=== PATIENT | male | born 1955 | race Caucasian/White ===

== ENCOUNTER → 2023-10-25 08:09 | Outpatient (REF) | payer BC, SELFPAY | LOC: HWRAD 08:09 | PROVIDERS: ATTENDING PHYSICIAN Internal Medicine | DX: R10.11 Right upper quadrant pain (principal) | CPT/HCPCS: 74170; Q9967 ==

== ENCOUNTER → 2023-11-25 12:36 | Outpatient (REF) | payer BC, SELFPAY | LOC: RAD 12:36 | PROVIDERS: ATTENDING PHYSICIAN Internal Medicine Hematology & Oncology; FAMILY PHYSICIAN Internal Medicine | DX: C25.0 Malignant neoplasm of head of pancreas (principal) | CPT/HCPCS: 71260; 72193; Q9967 ==

== ENCOUNTER → 2023-11-29 08:49 | Outpatient (REF) | payer BC, SELFPAY ==
[2023-11-29] MEDS: ANCEF 10 IV (09:12)
[2023-11-29 09:18] VITALS: BP 119/79; BP_SYST 72
[2023-11-29 10:36] VITALS: BP 118/75
== END ==
LOC: RADI 08:49
PROVIDERS: ATTENDING PHYSICIAN Internal Medicine Hematology & Oncology; FAMILY PHYSICIAN Internal Medicine
DX: C25.0 Malignant neoplasm of head of pancreas (principal)
CPT/HCPCS: 36561; 76937; 77001; 99152; 99153; C1788

== ENCOUNTER 2023-12-05 07:00 | Outpatient (REF) | payer BC, SELFPAY ==
[2023-12-05 07:30] VITALS: BP 103/64; BP_SYST 72
[2023-12-05 07:51] LABS: Hemoglobin 10.7 g/dL (13.0-18.0); Mean Corp Hgb Conc. 34.5 g/dL (33.0-37.0); Mean Corpuscular Volume 81.2 fL (80.0-94.0); Mean Platelet Volume 8.8 fL (7.4-10.4); Platelet Count 317 10^3/uL (130-400); Red Blood Cell Count 3.82 10^6/uL (4.70-6.10); White Blood Cell Count 6.4 10^3/uL (4.8-10.8)
[2023-12-05 08:01] LABS: INR 1.14; PT 14.6 Sec (11.4-14.6)
[2023-12-05 10:15] VITALS: BP 124/75
[2023-12-05 10:45] VITALS: BP 128/76
[2023-12-05] MEDS: TYLENOL 1000 MG PO (11:20)
[2023-12-05 11:27] VITALS: BP 138/83
[2023-12-05 13:00] VITALS: BP 119/74
--- NOTE | 2023-12-05 13:35 | VATNOTE ---
Right SQ port flushed with 500 units of heparin and de-accessed.
[2023-12-05 14:00] VITALS: BP 113/69
== END 2023-12-05 14:00 | disposition home or self-care (01) ==
LOC: RADI 07:00
PROVIDERS: Radiology Diagnostic Radiology; ATTENDING PHYSICIAN Internal Medicine Hematology & Oncology; FAMILY PHYSICIAN Internal Medicine
DX: C22.7 Other specified carcinomas of liver (principal); K86.89 Other specified diseases of pancreas
CPT/HCPCS: 88307; 47000; 76942; 85027; 85610; 88333; 88334; 88341; 88342; 99152; 99153

== ENCOUNTER → 2023-12-24 09:58 | Outpatient (REF) | payer BC, SELFPAY ==
[2023-12-24 11:27] LABS: ALT (SGPT) 47 U/L (0-50); AST (SGOT) 32 U/L (17-59); Albumin 3.6 g/dl (3.5-5.0); Alkaline Phosphatase 278 U/L (38-126); Blood Urea Nitrogen 13 mg/dl (9-20); Calcium 8.9 mg/dl (8.4-10.2); Carbon Dioxide 27 mmol/L (22-30); Chloride 89 mmol/L (98-107); Glucose 257 mg/dl (70-99); Potassium 4.3 mmol/L (3.5-5.1); Sodium 132 mmol/L (135-145); Total Bilirubin 0.5 mg/dl (0.2-1.3); Total Protein 6.5 g/dl (6.3-8.2); eGFR > 60.00
== END ==
LOC: OIDL 09:58
PROVIDERS: ATTENDING PHYSICIAN Internal Medicine Hematology & Oncology
DX: C25.0 Malignant neoplasm of head of pancreas (principal)
CPT/HCPCS: 80053

== ENCOUNTER → 2024-01-15 13:52 | Outpatient (REF) | payer BC, SELFPAY | LOC: HWRCS 13:52 | PROVIDERS: ATTENDING PHYSICIAN Nurse Practitioner; FAMILY PHYSICIAN Internal Medicine | DX: I35.8 Other nonrheumatic aortic valve disorders (principal) | CPT/HCPCS: 93306 ==

== ENCOUNTER → 2024-03-05 16:37 | Outpatient (REF) | payer BC, SELFPAY | LOC: RAD 16:37 | PROVIDERS: ATTENDING PHYSICIAN Internal Medicine Hematology & Oncology; FAMILY PHYSICIAN Internal Medicine | DX: C25.0 Malignant neoplasm of head of pancreas (principal) | CPT/HCPCS: 71260; 74177; Q9967 ==

== ENCOUNTER → 2024-05-05 07:47 | Outpatient (REF) | payer BC, SELFPAY | LOC: HWRAD 07:47 | PROVIDERS: ATTENDING PHYSICIAN Internal Medicine Hematology & Oncology; FAMILY PHYSICIAN Internal Medicine | DX: C25.0 Malignant neoplasm of head of pancreas (principal) | CPT/HCPCS: 76700 ==

== ENCOUNTER → 2024-05-14 11:10 | Outpatient (REF) | payer BC, SELFPAY ==
[2024-05-14 12:14] LABS: Hematocrit 26.7 % (39.0-52.0); Hemoglobin 8.2 g/dL (13.0-18.0); Mean Corp Hgb Conc. 30.7 g/dL (33.0-37.0); Mean Corpuscular Hgb 29.7 pg (27.0-31.0); Mean Corpuscular Volume 96.7 fL (80.0-94.0); Mean Platelet Volume 10.9 fL (7.4-10.4); Platelet Count 227 10^3/uL (130-400); Red Blood Cell Count 2.76 10^6/uL (4.70-6.10); Red Cell Dist. Width 19.8 % (11.5-14.5); White Blood Cell Count 14.3 10^3/uL (4.8-10.8)
[2024-05-14 12:55] LABS: % Basophils 0.7 % (0-2); % Eosinophils 0.3 % (0-6); % Immature Granulocytes 2.8 % (0-0.5); % Lymphocytes 6.7 % (20.5-51.1); % Monocytes 10.7 % (1.7-9.3); % Neutrophils 78.8 % (42.2-75.2); Absolute Basophils 0.1 10^3/uL (0-0.2); Absolute Eosinophils 0.1 10^3/uL (0-0.7); Absolute Immature Granulocytes 0.4 10^3/uL (0-0.05); Absolute Monocytes 1.5 10^3/uL (0.1-0.6); Absolute Neutrophils 11.3 10^3/uL (1.4-6.5); Nucleated Red Blood Cells % 0.3 % (-)
[2024-05-14 13:24] LABS: ALT (SGPT) 95 U/L (0-50); AST (SGOT) 116 U/L (17-59); Albumin 2.7 g/dl (3.5-5.0); Blood Urea Nitrogen 21 mg/dl (9-20); Calcium 8.4 mg/dl (8.4-10.2); Carbon Dioxide 27 mmol/L (22-30); Chloride 107 mmol/L (98-107); Direct Bilirubin 1.9 mg/dl (0.0-0.4); Glucose 135 mg/dl (70-99); Potassium 4.8 mmol/L (3.5-5.1); Sodium 139 mmol/L (135-145); Total Bilirubin 2.6 mg/dl (0.2-1.3); Total Protein 5.4 g/dl (6.3-8.2); eGFR > 60.00
[2024-05-14 13:38] LABS: Alkaline Phosphatase 1440 U/L (38-126)
== END ==
LOC: OIDL 11:10
PROVIDERS: ATTENDING PHYSICIAN Nurse Practitioner Adult Health
DX: C25.0 Malignant neoplasm of head of pancreas (principal)
CPT/HCPCS: 36415; 80048; 80076; 85025

== ENCOUNTER → 2024-05-22 16:02 | Outpatient (REF) | payer BC, SELFPAY ==
[2024-05-22 15:19] LABS: Iron 58 ug/dl (49-181)
[2024-05-22 15:28] LABS: Percent Saturation 31 % (20-50); Total Iron Binding Capacity 185 ug/dl (261-462)
== END ==
LOC: OIDL 16:02
PROVIDERS: ATTENDING PHYSICIAN Nurse Practitioner Adult Health
DX: C25.0 Malignant neoplasm of head of pancreas (principal)
CPT/HCPCS: 82728; 83540; 83550

== ENCOUNTER 2024-06-01 08:59 | Outpatient (RCR) | payer BC, SELFPAY ==
[2024-05-28 08:59] VITALS: BP 107/56
[2024-05-28 09:16] VITALS: BP 94/52
[2024-05-28 11:11] VITALS: BP 102/55
[2024-05-29 13:46] LABS: % Basophils 0.1 % (0-2); % Immature Granulocytes 0.8 % (0-0.5); % Lymphocytes 3.7 % (20.5-51.1); % Monocytes 3.6 % (1.7-9.3); % Neutrophils 91.8 % (42.2-75.2); Absolute Immature Granulocytes 0.2 10^3/uL (0-0.05); Absolute Lymphocytes 0.8 10^3/uL (1.2-3.4); Absolute Monocytes 0.8 10^3/uL (0.1-0.6); Absolute Neutrophils 19.1 10^3/uL (1.4-6.5); Hematocrit 23.1 % (39.0-52.0); Hemoglobin 7.4 g/dL (13.0-18.0); Mean Corpuscular Hgb 31.4 pg (27.0-31.0); Mean Corpuscular Volume 97.9 fL (80.0-94.0); Mean Platelet Volume 10.9 fL (7.4-10.4); Platelet Count 39 10^3/uL (130-400); Red Blood Cell Count 2.36 10^6/uL (4.70-6.10); Red Cell Dist. Width 22.7 % (11.5-14.5); White Blood Cell Count 20.8 10^3/uL (4.8-10.8)
[2024-06-01 09:47] VITALS: BP 104/58
[2024-06-01 10:05] VITALS: BP 91/56
[2024-06-01 11:59] VITALS: BP 103/67
== END 2024-06-15 23:59 | disposition home or self-care (01) ==
LOC: OID 08:59
PROVIDERS: Nurse Practitioner Adult Health; ATTENDING PHYSICIAN Internal Medicine Hematology & Oncology; FAMILY PHYSICIAN Internal Medicine
DX: C25.0 Malignant neoplasm of head of pancreas (principal); D64.81 Anemia due to antineoplastic chemotherapy
CPT/HCPCS: 36415; 36430; 85025; 86850; 86900; 86901; 86920; P9016

== ENCOUNTER → 2024-06-08 06:49 | Outpatient (REF) | payer BC, SELFPAY | LOC: RAD 06:49 | PROVIDERS: ATTENDING PHYSICIAN Internal Medicine Hematology & Oncology; FAMILY PHYSICIAN Internal Medicine | DX: C25.0 Malignant neoplasm of head of pancreas (principal) | CPT/HCPCS: 71260; 74177; Q9967 ==

== ENCOUNTER 2024-07-01 07:55 | Inpatient (IN) | payer BC, MEDICARE, SELFPAY ==
[2024-07-01] VITALS (114 sets, daily range): BP systolic 56–126; BP diastolic 35–103; PULSE 106; BMI 31.6; BMI 31.3
[2024-07-01] MEDS: NSS 1000 IV (04:39)
--- NOTE | 2024-07-01 05:07 | ED.GENMED ---
History of Present Illness
General
Chief Complaint: Weakness
Source: patient and ambulance crew
Exam Limitations: none
Time Seen by Provider: 07/01/24 04:38
Nursing documentation reviewed up to this point in time: agreed with
History of Present Illness
History of Present Illness:
69-year-old male presents to the emergency department with weakness. Patient originally needed help getting out of a chair so family called 911. Patient did not fall or hit his head. Medics arrived on scene and found that the patient was
extremely pale and too weak to stand on his own. They brought him to the hospital for evaluation. states that this is his first hospitalization anywhere. He does follow with oncology but only as an outpatient. Patient has a history of
pancreatic cancer and is on chemotherapy. He states that he was first diagnosed in December 09 and has been on chemotherapy since. Patient reports having gained weight recently. He states that his abdomen is very distended and his legs are also
distended. Patient does get chemo and is being treated by Dr. De Los Santos of [facility]. Patient denies fever, chills, chest pain, or shortness of breath. Aside from the weakness, patient denies any other symptoms.
Patient is full code.
Vital signs are stable. Patient not hypoxic
Nursing note reviewed. I agree with nursing documentation up to this point in time.
Home Meds and allergies reviewed.
NUMBER AND COMPLEXITY OF PROBLEMS ADDRESSED AT THE ENCOUNTER
� Chronic conditions affecting care: Pancreatic mass at the head of the pancreas. Metastatic disease to the liver. Type 2 diabetes, hyperlipidemia, colonic polyps, hypertension, obstructive sleep apnea on CPAP, obesity,
� Acute Exacerbation and/or Progression of Chronic Illness: Pancreatic cancer with mets to the liver. Possible further metastasis
� Differential Diagnosis includes: Further metastatic disease, anemia, GI bleed electrolyte abnormality, hypothermia
AMOUNT AND/OR COMPLEXITY OF DATA TO BE REVIEWED AND ANALYZED
I performed an independent evaluation of the following and my interpretation is:
EKG:
Pulse Ox: Not Hypoxic on room air. 98%
Sander Wooden Pencils: Sinus Rhythm
CT:
X-rays:
Ultrasound:
Laboratory Studies: Hemoglobin 5.2, hematocrit 16.6
Other:
Review of other/old records: H&P from 11/29/2023 shortly after his cancer diagnosis. Biopsy
Clinical information was obtained by an independent historian: was present at the bedside is a valuable historian.
Prescriptions/Medications Considered but not given:
Further testing considered but not performed:
RISK OF COMPLICATIONS AND/OR MORBIDITY OR MORTALITY OF PATIENT MANAGEMENT
Social determinants of health affecting care: Good Social Support, present at the bedside
Discussion with other providers: Hospital for ICU admission
Escalation of care including admission/observation vs risk of discharge considered: After being observed in the emergency department, patient is not stable for discharge. He will be admitted to the ICU
CRITICAL CARE NOTE:
Critical care statement: A total of 45 minutes of critical care time was provided for this patient. This time is separate from time utilized to perform the aforementioned documented procedures. Aggregate critical care time includes only time
during which I was engaged in work directly related to the patient's care, as described above, whether at the bedside or elsewhere in the Emergency Department.
Total Time (exclusive of procedures):45
Update:
Phy Exam
General Physical Exam
General Presentation: mild distress
General age: appears older than age
General Skin: warm, dry and pale
General Habitus: debilitated, elderly, failure to thrive and frail
General Mental: alert
Eye Exam
Eye Exam: PERRL
Cardiovascular Exam
Cardiovascular Exam: regular rate/rhythm
Pulmonary Exam
Pulmonary Exam: lungs clear and no respiratory distress
Gastrointestinal Exam
Gastrointestinal Exam: normal bowel sounds, non tender and ascites
Palpation: generalized: No tenderness
Auscultation of Abdomen: normal
Liver Exam: ascites
Guaiac Status: positive
Neurological Exam
Neurological Exam: alert and oriented x3
Musculoskeletal Exam
Musculoskeletal Exam: full ROM, edema (Large edema bilaterally lower extremities consistent with 4+ pitting edema) and neuro vasc intact
Skin Exam
Skin Exam: warm/dry and pallor
Psychiatric Exam
Psychiatric Exam: labile
Course
Orders/Labs/Results
Orders:
Orders
07/01/24 04:54
Type And Crossmatch [Type+Screen] Urgent
Complete Blood Count/With Diff Urgent
Comprehensive Metabolic Panel Urgent
Lipase Urgent
PTT Urgent
Prothrombin Time Urgent
07/01/24 05:06
0.9% Sodium Chloride 1000 ml [Nss] 1,000 ml IV BOLUS
07/01/24 05:25
* Blood Bank Products Urgent
Blood Bank Products: *Packed RBC Leuko(PRBC's)
Quantity: 2
Transfuse Today: Yes
Reason: Anemia
07/01/24 05:[address] Non Medication Order As Directed
Physician Order: giovanny cox
07/01/24 05:31
Electrocardiogram (*1) Urgent
Reason for Study: Abdominal Pain
EKG- Treatment ONCE
07/01/24 05:52
Pantoprazole [Protonix IV] 80 mg IV NOW STA
07/01/24 05:53
Piperacillin/Tazo 4.5 Gram [Zosyn] 4.5 gram in 100 ml IV NOW
07/01/24 06:00
NORepinephrine 4 MG/250 ML [Levophed] 4 mg in 250 ml IV PER PROTOCOL
Initial dose in mcg/min, then titrate:: 8
Titrate to keep:: MAP > 65 mmHg
Titrate by mcg/min:: 1-2 mcg/min
Frequency of titrations (minutes):: 5
Maximum dose in ICU in mcg/min:: 30
Maximum dose in IMU in mcg/min:: 8
Maximum dose in IVU in mcg/min:: 4
Begin to taper infusion when:: Remained at goal for 4hrs
Taper by mcg/min:: 1-2 mcg/min
Frequency of taper (minutes) if patient maintains goal:: 30
Taper to off?: Yes
If infusion off & no longer maintaining goal:: Contact Provider
Pantoprazole 80 mg/100 ml Nss [Protonix] 80 mg in 100 ml IV Q10H
Abnormal Lab Results
07/01/24
04:54
WBC 20.8 H 10^3/uL
(4.8-10.8)
RBC 1.55 L 10^6/uL
(4.70-6.10)
Hgb 5.2 L* g/dL
(13.0-18.0)
Hct 16.6 L* %
(39.0-52.0)
MCV 107.1 H fL
(80.0-94.0)
MCH 33.5 H pg
(27.0-31.0)
MCHC 31.3 L g/dL
(33.0-37.0)
RDW 26.5 H %
(11.5-14.5)
Plt Count 40 L 10^3/uL
(130-400)
MPV 12.5 H fL
(7.4-10.4)
PT 23.0 H Sec
(11.4-14.6)
APTT 52.2 H Sec
(23.4-35.0)
Sodium 147 H mmol/L
(135-145)
Chloride 118 H mmol/L
(98-107)
Carbon Dioxide 12 L* mmol/L
(22-30)
BUN 76 H mg/dl
(9-20)
Creatinine 1.7 H mg/dL
(0.7-1.3)
Glucose 106 H mg/dl
(70-99)
Calcium 7.8 L mg/dl
(8.4-10.2)
Total Bilirubin 2.7 H mg/dl
(0.2-1.3)
AST 76 H U/L
(17-59)
Alkaline Phosphatase 472 H U/L
(38-126)
Total Protein 4.5 L g/dl
(6.3-8.2)
Albumin 1.6 L g/dl
(3.5-5.0)
07/01/24 04:54
07/01/24 04:54
Vital Signs
Initial and Last Documented VS:
Initial Vital Signs
BP
81/48
07/01/24 04:43
Last Documented Vital Signs
Temp Pulse Resp BP Pulse Ox
93.2 F L 72 16 78/46 98
07/01/24 05:25 07/01/24 05:00 07/01/24 05:00 07/01/24 05:00 07/01/24 05:14
MDM/Problems Addressed
Differential Diagnosis Includes:
See above
MDM/Problems Addressed:
See above
*Critical Care Note
Total Time (30-74mins, 75-104mins- exclusive of procedures): 45
Patient Management
Social determinants of health affecting care: Living situation (Patient lives at home and was too weak to get up. Required a lift assist to help lift him back into bed which necessitated a trip to the ER due to patient's weakness.) and Strong
social support
Discussion with other providers: Hospitalist
Update Note
Update Note:
Patient's hemoglobin is 5.2, hematocrit is 16.6.
Blood consent signed in the presence of myself and nursing by with patient's consent.
states that patient has gotten blood in the past.
After 1 L of fluid patient is still hypotensive. Levophed drip started.
Patient has a 20.8 white blood cell count. Will start empiric antibiotics.
Heme positive stools, hemoglobin 5.2, will start Protonix for presumed GI bleed
ED Attending Note
-
Portions of this chart may have been created with voice recognition software.� Occasional wrong word or��sound alike� substitutions may have occurred due to the inherent limitations of voice recognition software.
Discharge Plan
Departure
Patient Disposition: Admit
Date of Disposition: 07/01/24
Time of Disposition: 05:28
Admit to: ICU
Presentation/result/management discussed w/ accepting MD/DO: Hospitalist
Discharge Problem:
Anemia, Pancreatic cancer, Advance directive indicates patient wish for full code resuscitation status, Weakness generalized, Hypothermia, Hypocapnia
Prescriptions:
No Action
atorvastatin 40 mg Tablet
40 mg PO DAILY
amlodipine 10 mg Tablet
10 mg PO DAILY
metformin 1,000 mg Tablet
1,000 mg PO BID
lisinopril 40 mg Tablet
40 mg PO DAILY
docusate sodium 100 mg Tablet
100 mg PO DAILY PRN (Reason: constipation)
B12 5,000-100 mcg Lozenge
1 justine SUBLINGUAL DAILY
acetaminophen 325 mg Capsule
650 mg PO BID
furosemide [Lasix] 20 mg Tablet
20 mg PO BID
Referrals:
UNKNOWN - PT DOES,NOT KNOW [Family Provider] -
Interventions
Interventions:
*Risk Screen - Suicide Last Done: 07/01/24 04:39
*General Assessment Last Done: 07/01/24 04:39
*Neglect/Abuse Screening Last Done: 07/01/24 04:39
*ED- Fall Risk Assessment Last Done: 07/01/24 04:39
*ED COVID-19 Vaccine History Last Done: 07/01/24 04:39
ED- Cardiac Assessment Last Done: 07/01/24 04:40
ED- Neurological Assessment Last Done: 07/01/24 04:40
ED- Pulmonary Assessment Last Done: 07/01/24 04:40
Discharge Date and Time
Print Language: DANISH
[2024-07-01 05:16] LABS: INR 2.02
[2024-07-01 05:17] LABS: APTT 52.2 Sec (23.4-35.0)
[2024-07-01 05:19] LABS: Hematocrit 16.6 % (39.0-52.0); Hemoglobin 5.2 g/dL (13.0-18.0); Mean Corp Hgb Conc. 31.3 g/dL (33.0-37.0); Mean Corpuscular Hgb 33.5 pg (27.0-31.0); Mean Corpuscular Volume 107.1 fL (80.0-94.0); Mean Platelet Volume 12.5 fL (7.4-10.4); Platelet Count 40 10^3/uL (130-400); Red Blood Cell Count 1.55 10^6/uL (4.70-6.10); Red Cell Dist. Width 26.5 % (11.5-14.5); White Blood Cell Count 20.8 10^3/uL (4.8-10.8)
[2024-07-01 05:21] LABS: ALT (SGPT) 43 U/L (0-50); AST (SGOT) 76 U/L (17-59); Albumin 1.6 g/dl (3.5-5.0); Alkaline Phosphatase 472 U/L (38-126); Blood Urea Nitrogen 76 mg/dl (9-20); Calcium 7.8 mg/dl (8.4-10.2); Carbon Dioxide 12 mmol/L (22-30); Chloride 118 mmol/L (98-107); Estimated Creatinine Clearance 45 ml/min; Glucose 106 mg/dl (70-99); Lipase 29 U/L (23-300); Sodium 147 mmol/L (135-145); Total Bilirubin 2.7 mg/dl (0.2-1.3); Total Protein 4.5 g/dl (6.3-8.2); eGFR 43.64
[2024-07-01 05:55] LABS: % Basophils 0.2 % (0-2); % Immature Granulocytes 1.2 % (0-0.5); % Lymphocytes 1.3 % (20.5-51.1); % Monocytes 2.5 % (1.7-9.3); % Neutrophils 94.8 % (42.2-75.2); Absolute Basophils 0.1 10^3/uL (0-0.2); Absolute Immature Granulocytes 0.3 10^3/uL (0-0.05); Absolute Lymphocytes 0.3 10^3/uL (1.2-3.4); Absolute Monocytes 0.5 10^3/uL (0.1-0.6); Absolute Neutrophils 19.7 10^3/uL (1.4-6.5); Nucleated Red Blood Cells % 0.1 % (-)
[2024-07-01] MEDS: PROTONIX IV 80 MG IV (06:00)
[2024-07-01] MEDS: LEVOPHED 250 IV ×2 (06:01→17:54)
[2024-07-01] MEDS: PROTONIX IV ×2 (06:06→18:29)
[2024-07-01] MEDS: ZOSYN 100 IV (06:07)
[2024-07-01] MEDS: PROTONIX 100 IV ×2 (06:10→23:00)
--- NOTE | 2024-07-01 06:42 | HPS.HSE ---
Family Physician
-
Family Physician: NOT KNOW UNKNOWN - PT DOES
Chief Complaint
-
Weakness
History of Present Illness
This is a 69-year-old with past medical history significant for metastatic pancreatic cancer currently on chemotherapy with progressive disease and extensive liver mets complicated by ascites and anasarca presenting to the emergency department from
home with profound weakness and hypotension.
Patient last round of chemo about 1 week ago. He appeared to have needed transfusions on May 28 and June 01. He had apparently been managing at home waiting for a hospital bed. A sleepover for his chair today and he was able to get himself off
the ground. Son helped him to get back into his seat but then he slipped again. He initially did not want to come to the emergency department but spouse found him ashen and pale. He was very weak and eventually agreed to come to the emergency
department. EMS report hypotension given about half a liter of normal saline and then transferred to the ED.
According to spouse and patient he had a mild cough and some shortness of breath. He denied any abdominal pain nausea or vomiting. Denied having diarrhea. He denies any urinary symptoms. He has not had any melena or hematochezia at home.
Denies any recent antibiotic use.
On arrival in the emergency department he was hypothermic to 93 rectal, blood pressure was 60/40 with a pulse of 72 and he was satting 95% on room air.
CBC shows a white count of 20.8, hemoglobin of 5.2 and a platelet count of 40. INR was 2.0. Electrolytes notable for a potassium of 5.0, bicarb of 12, BUN of 76 and a creatinine of 1.7. Total bilirubin was 2.7, AST 76 ALT 43. Alk phos 407
Medical History
Past Medical History
Past Medical History: Reports Cancer (Metastatic pancreatic cancer), HTN and NIDDM
Past Surgical History: Reports Other
Social History
Tobacco: Non-smoker
Alcohol: None
Drug: None
Personal:
Living: With Family
Family History
Family History: Not pertinent
Allergies / Home Medications
Allergies reflects when Allergies were last updated in [facility].
Home Medications with original date entered in [facility]
Allergy/Medication List:
Allergies
Allergy/AdvReac Type Severity Reaction Status Date / Time
SILK SUTURES Allergy FAILURE TO Uncoded 07/01/24 04:39
HEAL
Home Medications
amlodipine 10 mg tablet 10 mg PO DAILY 11/27/23
atorvastatin 40 mg tablet 40 mg PO DAILY 11/27/23
cyanocobalamin (B12)-cobamamide 5,000 mcg-100 mcg sublingual lozenge (B12) 1 justine sublingual DAILY 11/27/23
docusate sodium 100 mg tablet 100 mg PO DAILY PRN constipation 11/27/23
lisinopril 40 mg tablet 40 mg PO DAILY 11/27/23
metformin 1,000 mg tablet 1,000 mg PO BID 11/27/23
acetaminophen 325 mg capsule 650 mg PO BID 11/29/23
furosemide 20 mg tablet (Lasix) 20 mg PO BID 05/28/24
Review of Systems
-
Unable to obtain full review of systems at this time due to: Dementia
History Source: Patient and Family
Constitutional: Reports Fatigue
Respiratory: Reports Cough
Cardiac: Reports No Symptoms
Abdomen/GI: Reports No Symptoms
: Reports No Symptoms
Musculoskeletal: Reports No Symptoms
Skin: Reports No Symptoms
Neurological: Reports Weakness
Endocrine: Reports No Symptoms
Hematologic/Lymphatic: Reports No Symptoms
Psych: Reports No Symptoms
Physical Exam
Vital Signs
Vital Signs
Temp Pulse Resp BP Pulse Ox
93.0 F L 88 15 76/61 90
07/01/24 06:25 07/01/24 06:35 07/01/24 06:35 07/01/24 06:35 07/01/24 06:25
Physical Exam
General: Appears Chronically Ill
HEENT: NormoCephalic, Anicteric, Moist mucous membranes and PERRLA
Respiratory: Clear
Cardiac: S1/S2 and Regular Rhythm
Breast: Deferred by me
GI: Soft, Non Tender and Distended
Rectal: Hem Positive and Maroon Stools
Genito-urinary: Deferred by me
Musculoskeletal: No Clubbing, No Cyanosis, Edema, Left Lower Extremity and Edema, Right Lower Extremity
Neuro: Alert and Oriented (oriented to person and place)
Hematologic/Lymphatic: No Lymphadenopathy
Psych: Calm
Laboratory Results
-
07/01/24 04:54
07/01/24 04:54
Laboratory Results
PT 23.0 Sec (11.4-14.6) H 07/01/24 04:54
INR 2.02 07/01/24 04:54
APTT 52.2 Sec (23.4-35.0) H 07/01/24 04:54
Total Bilirubin 2.7 mg/dl (0.2-1.3) H 07/01/24 04:54
AST 76 U/L (17-59) H 07/01/24 04:54
ALT 43 U/L (0-50) 07/01/24 04:54
Alkaline Phosphatase 472 U/L (38-126) H 07/01/24 04:54
Lipase 29 U/L (23-300) 07/01/24 04:54
Data Reviewed
-
CT Scan: Report Reviewed by me (CT a/p from 06/08/24)
Medical Tests (Nuc Med, Echo, EKG etc): Image Personally Visualized and interpreted
Lab Data: Labs Reviewed by me
Old Records: Reviewed
Impression/Plan
-
IMPRESSION:
This is a 69-year-old with metastatic pancreatic cancer and extensive liver mets complicated by ascites, anasarca here with shock physiology suspect hemorrhagic with or without septic shock.
PLAN:
1. Anemia - Coagulopathy with INR 2, Plt 40 and Hgb 5. Down from 7 in may. Has had 2 transfusion in may. Maroon stools in ED. No history of GI bleeding at home.
- admit to icu
- presumed upper and lower gi bleed
- npo for now
- continued ppi gtt
- correct plt
- transfuse 2 units prbc
- H&H q 8 hours
- Transfuse to goal Hgb > 7
- GI consultation
2. Leukocytosis/septic shock - Chronic leukocytosis. However in setting of shock cannot rule out infection. No clear source. No abdominal pain or tenderness to suggest SBP and portal hypertension is from metastatic liver disease and not
cirrhosis.
- blood cultures, urine cultures, check procalcitonin
- empiric vancomycin and zosyn for now
- if procal +, will consult [facility] for dgx paracentesis
- chest xray
3. Hypothermia - Hemodynamic shock/bleed vs infection
- treatments as above
- added stress dose steroids
- warming measures
4. Hypotension - hemorrhagic vs setic shock. Total body volume overload with anasarca from portal hypertension
- resuscitation as above
- pressors, stress dose steroids
- consider albumin support
5. RONNIE - Cr 1.7, BUN 76,
- pressors and resuscitation
- non gap and gap acidosis likely related to lactate and shock.
- IV fluids with d5 150 meq bicarb@ 125 ml/hr
holding patients oral medications and bp meds
blood glucose q6 hours
DVT PPX - SCDs for now
Code Status - Full Code. Extensive discussion and patient/family understands implications.
[2024-07-01] MEDS: SOLU-CORTEF 100 MG IV (07:02)
--- NOTE | 2024-07-01 08:20 | CON.INTV ---
Consultation
Consultation Request
Date/Time Consultation Requested: 07/01/24
Date/Time Consultation Performed: 07/01/24
Medical History
-
Chief Complaint: weakness
History of Present Illness:
Mr. Abner Alvarez is a 69yo M pmh pancreatic cancer w mets to liver, HTN, HLD, DM type 2 admitted from the ED for profound weakness and HoTN. Pt receives chemo per Dr. De Los Santos of [facility]. His last round of chemo was 1 week ago.
Required transfusions 05/28 and 06/01. Pt appeared ashen and franklin to his . Melena reported in ED. 2 units pRBCs transfused in ED.
Past Medical History
Past Medical History: Cancer (pancreatic head mass w mets to liver), HTN, Hypercholesterolemia, NIDDM and Other (DANNI on CPAP, obesity)
Social History
Tobacco: Non-smoker
Alcohol: None
Drug: None
Personal:
Living: With Family
Employment: Retired
Family History
Family History: Reviewed & Not Pertinent
Allergies / Home Medications
Allergies
Allergy/AdvReac Type Severity Reaction Status Date / Time
SILK SUTURES Allergy FAILURE TO Uncoded 07/01/24 04:39
HEAL
Home Medications
�Medication �Instructions �Recorded �Confirmed �Last Taken �Type
atorvastatin 40 mg tablet 40 mg PO DAILY 11/27/23 07/01/24 06/30/24 09:00 History
lisinopril 40 mg tablet 40 mg PO DAILY 11/27/23 07/01/24 06/30/24 09:00 History
metformin 1,000 mg tablet 1,000 mg PO BID 11/27/23 07/01/24 06/30/24 09:00 History
furosemide 20 mg tablet (Lasix) 20 mg PO BID 05/28/24 07/01/24 06/30/24 09:00 History
prochlorperazine maleate 10 mg 10 mg PO Q6HPRN PRN nausea 07/01/24 07/01/24 Unknown History
tablet
Review of Systems
-
Constitutional: No Symptoms
EENT: No Symptoms
Respiratory: No Symptoms
Cardiac: No Symptoms
Abdomen/GI: Nausea and Bloody Stools
: No Symptoms
Musculoskeletal: No Symptoms
Neuro: No Symptoms
Vitals / Labs / Diagnostic Testing
Vital Signs
Temp Pulse Resp BP Pulse Ox
94.2 F L 106 14 111/79 93
07/01/24 08:02 07/01/24 08:02 07/01/24 08:02 07/01/24 08:02 07/01/24 07:45
Lab Data
07/01/24 04:54
07/01/24 04:54
Laboratory Results
07/01/24
04:54
PT 23.0 H
INR 2.02
APTT 52.2 H
Diagnostic Testing:
Physical Exam
-
HEENT: Other (scleral icterus)
Cardiovascular: S1/S2, Regular Rhythm and Other (tachycardia)
Respiratory: Clear
GI: Soft, Distended, Non Tender, Normal Bowel Sounds and Organomegaly
Neurology: Awake and AO x 3
Skin: Dry and Other (jaundice)
General: Comfortable
Exam:
Extremities: anasarca
Assessment
-
Pt is a 69yo M pmh pancreatic cancer w mets to liver, HTN, HLD, DM type 2 admitted for shock.
Sepsis with severe septic shock.
Hypotension not responding to IV fluids and requiring multiple pressors.
Metabolic acidosis.
Acute kidney injury.
Acute blood loss anemia
Gastrointestinal hemorrhage presented with maroon stools and acute blood loss anemia
Coagulopathy
Hypoalbuminemia
Metastatic to the liver pancreatic carcinoma treated with multiple rounds of chemotherapy
Plan:
Leukocytosis
Septic shock
- chronic leukocytosis, however in setting of shock cannot rule out infection
- urine cx, blood cx
- empiric vancomycin and zosyn
- CXR, CT abd/pelvis, abd u/s, lower extremity doppler pending
- if ascites is present, consider paracentesis
- phosphorus pending
Hypothermia
- stress dose steroids
- rewarming
HoTN
- hemorrhagic vs septic shock
- total body fluid overload w anasarca from portal htn
- hold home lasix and lisinopril for hotn
- pressors, stress dose steroids
Anemia
Coagulopathy
- Hb 5.2, plt 40, INR 2.0
- maroon stools in ED
- transfuse pRBCs, platelets
- transfuse Hb<7 or Hb<8 w active bleed
- transfuse plt<10 or plt<50 w active bleed
- H&H q8h
- fibrinogen pending
- GI consulted
RONNIE
Anion gap metabolic acidosis
- Cr 1.7, BUN 76
- vbg
DM type II
- blood glucose q6h
- HbA1c
Diet: NPO
DVT ppx: SCDs
Code status: FULL CODE
[2024-07-01] MEDS: SODIUM BICARBONATE 1150 MEQ IV ×2 (09:17→20:56)
--- NOTE | 2024-07-01 10:00 | PTCARENOTE ---
0940-Received pt from ED via stretcher.Awake and alert.Conversation is appropriate.+DELGADILLO.Denies pain.SR noted.Bicarb,Levophed and Protonix gtts infusing.Platelets transfusing as ordered.Decreased breath sounds bibasilar.O2 2l NC.POX 98%NPO.No
BM.Bladder scanned for 776 ml.Pt reports no void since 1200 06/30. made aware.Magana inserted as ordered.Draining taras urine.Skin integrity as documented.Pt's at bedside.Plan of care discussed.
--- NOTE | 2024-07-01 10:28 | CON.GI ---
Addendum entered and electronically signed by Mireya Petersen MD 07/01/24 15:49:
I saw and examined the patient.
The BUSINESS ANALYST's note was reviewed and I agree with the note.
-- Sepsis/septic shock/ RONNIE
-- Acute on chronic anemia
-- Maroon stools concerns for GI bleed
-- Cytopenia/coagulopathy
-- Metastatic pancreatic carcinoma with liver mets-last chemo 1 week back
-- Elevated liver tests-likely secondary to mets
plan
Etiology of his anemia can be multifactorial -metastatic carcinoma with recent chemo / GI bleeding in the setting of thrombocytopenia, coagulopathy
Continue monitor H&H.
Continue supportive care with correction of platelets/coagulopathy as per medical team
Continue sepsis management as per medical team
Discussed with patient/family. Will hold off on colonoscopy. If significant bleeding will recommend CTA or bleeding scan
Continue follow-up with oncology -suggested palliative care
Original Note:
Consultation
-
Date/Time Consultation Requested: 07/01/24- 0945
Date/Time Consultation Performed: 07/01/24 1030
Requesting Provider: Neha Hunt MD
Performing Provider: DAVONTE Randhawa, Mireya Petersen MD
Reason for Consultation: weakness, hypotension, GI bleeding, increased LFT's
Medical History
Chief Complaint / HPI
Chief Complaint: rectal bleeding. weakness
History of Present Illness:
Pt is a 69yo present with hx metastatic pancreatic CA (diagnosed November 2023 on liver biopsy without need for prior biliary stenting. He follows with Dr. De Los Santos s/p 2 round of chemo and started 3rd round last week- pt unsure of therapy) , anemia
with recent OP transfusion in May, HTN, hyperlipidemia, NIDDM,colon polyps, sleep apnea, obesity with admission with hypotension and weakness. In review with patient and family noted with new chemo last week. He began with weakness and on
admission noted with hypothermia, hypotension requiring pressors, Tachycardia with concern for sepsis, metabolic acidosis, AKD, anemia with hbg down to 5.2 with burgundy stool per staff, thrombocytopenia with plates 40,000, INR 2.20, elevated LFT's
( bili 2.7, AST 76, ALT 43, alk phos 472 and last labs 05/14/23- bili 2.6, AST 116, ALT 96, alk phos 1440) lipase 29 with infectious work up pending. Imaging completed last month with CT noted progression of extensive hepatic mets, large volume
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
proximal common bile duct also appearing dilated measuring up to 11 mm. Distal duct difficult to follow.
At this time in review with patient and family pt admits to chronic bloating. He has had nausea,and alternating diarrhea with constipation. + wt loss 55 lbs since diagnosis with recent wt gain with fluid He denies dysphagia, GERD,
vomiting, abdominal pain, rectal bleeding but was noted with burgundy stool per staff. Last colonoscopy 09/2022 pate -- polyps, single non bleeding colonic angioectasia. bx HP polyps.
Past Medical History
Past Medical History: Cancer (metastatic pancreatic CA), HTN, Hypercholesterolemia, NIDDM and Other (colon polyps, sleep apnea, obesity)
Past Surgical History: Appendectomy and Tonsilectomy
Social History
Tobacco: Non-Smoker
Alcohol: None
Drug: None
Living: With Family
Employment: Retired
Family History
Family History: Reviewed & Not Pertinent
Allergies / Home Medications
Allergy/AdvReac Type Severity Reaction Status Date / Time
SILK SUTURES Allergy FAILURE TO Uncoded 07/01/24 04:39
HEAL
�Medication �Instructions �Recorded
atorvastatin 40 mg tablet 40 mg PO DAILY High Cholesterol 11/27/23
lisinopril 40 mg tablet 40 mg PO DAILY Blood Pressure 11/27/23
metformin 1,000 mg tablet 1,000 mg PO BID Diabetes 11/27/23
furosemide 20 mg tablet (Lasix) 20 mg PO BID Fluid 05/28/24
Retention/Swelling
fluorouracil 500 mg/10 mL 4,940 mg IV . DIRECTED Cancer 07/01/24
intravenous solution
irinotecan liposomal 4.3 mg/mL 144 mg IV . DIRECTED Cancer 07/01/24
intravenous
prochlorperazine maleate 10 mg 10 mg PO Q6HPRN PRN nausea 07/01/24
tablet
Review of Systems
-
History Source: Patient and Family
Constitutional: Reports Weight Loss ( 55 lbs then recent wt gain with fluid ) and Other (hypothermic )
EENT: Reports No Symptoms
Respiratory: Reports No Symptoms
Cardiac: Reports No Symptoms
Abdomen/GI: Reports Other (burgundy stools, bloating )
: Reports No Symptoms
Musculoskeletal: Reports No Symptoms
Skin: Reports No Symptoms
Neurological: Reports Weakness
Endocrine: Reports No Symptoms
Hematologic/Lymphatic: Reports Bleeding
Vital Signs
Temp Pulse Resp BP Pulse Ox
95.9 F L 101 14 106/60 95
07/01/24 10:02 07/01/24 09:20 07/01/24 09:20 07/01/24 09:20 07/01/24 09:20
Physical Exam
Exam
General: Other (pale with jaundice but conversant )
HEENT: Normocephalic and Other (jaundice )
Respiratory: Clear
Cardiac: Other (tachy)
GI: Soft, Non Tender and Non Distended
Rectal: Other (brown/red formed stool with large amount of soft impaction in rectum )
Musculoskeletal: No Clubbing and No Cyanosis
Skin: Warm and Dry
Neuro: Awake, Alert and AO x 3
Psych: Calm
Results
WBC 20.8 10^3/uL (4.8-10.8) H 07/01/24 04:54
Hgb Cancelled 07/01/24 20:00
Hct Cancelled 07/01/24 20:00
MCV 107.1 fL (80.0-94.0) H 07/01/24 04:54
Plt Count 40 10^3/uL (130-400) L 07/01/24 04:54
Absolute Neuts (auto) 19.7 10^3/uL (1.4-6.5) H 07/01/24 04:54
PT 23.0 Sec (11.4-14.6) H 07/01/24 04:54
INR 2.02 07/01/24 04:54
APTT 52.2 Sec (23.4-35.0) H 07/01/24 04:54
Sodium 147 mmol/L (135-145) H 07/01/24 04:54
Potassium 5.0 mmol/L (3.5-5.1) 07/01/24 04:54
Chloride 118 mmol/L (98-107) H 07/01/24 04:54
Carbon Dioxide 12 mmol/L (22-30) L* 07/01/24 04:54
BUN 76 mg/dl (9-20) H 07/01/24 04:54
Creatinine 1.7 mg/dL (0.7-1.3) H 07/01/24 04:54
Calcium 7.8 mg/dl (8.4-10.2) L 07/01/24 04:54
Total Bilirubin 2.7 mg/dl (0.2-1.3) H 07/01/24 04:54
AST 76 U/L (17-59) H 07/01/24 04:54
ALT 43 U/L (0-50) 07/01/24 04:54
Alkaline Phosphatase 472 U/L (38-126) H 07/01/24 04:54
Lipase 29 U/L (23-300) 07/01/24 04:54
Diagnostic Image Results:
06/08/24 CT Chest/abd/pel W Iv Cont
Continued progression of hepatic metastatic disease with significant enlargement of most lesions compared to the prior CT. For example, there is a lobulated hypodense lesion within the dome measuring 5 cm, previously 3.7 cm on 03/05/2024. The main
portal vein near the pancreatic head is occluded with cavernous transformation.
GALLBLADDER: Moderately distended.
BILE DUCTS: There is new mild intrahepatic duct dilatation with the proximal common bile duct also appearing dilated measuring up to 11 mm. Distal duct difficult to follow.
PANCREAS: Again seen is an ill-defined, heterogeneous mass within the pancreatic head measuring approximately 4.6 x 3.5 cm. There is atrophy of the distal pancreas with ductal dilatation.
SPLEEN: Mildly enlarged. Splenic vein appears to be chronically occluded with several varicosities noted within the splenic hilum.
ADRENALS: Within normal limits.
KIDNEYS/URETERS: Within normal limits.
BOWEL: No obstruction or wall thickening. There appear be several varices within the gastric fundus.
PERITONEUM: Large volume abdominal and pelvic ascites, significantly worsened compared to the prior CT.
REPRODUCTIVE: Within normal limits.
BLADDER: Within normal limits.
VESSELS: Non-aneurysmal abdominal aorta.
RETROPERITONEUM: No gross pelvic or retroperitoneal lymphadenopathy.
ABDOMINAL WALL: Diffuse anasarca.
BONES: Grade 1 anterolisthesis at L5-S1. Unchanged sclerotic focus within the left iliac bone, likely bone.
IMPRESSION:
1. Continued interval progression/worsening of extensive hepatic metastatic disease.
2. Large volume abdominal and pelvic ascites. Anasarca.
3. Redemonstration of ill-defined pancreatic head mass with chronic occlusion of the portal vein confluence and splenic vein. There is mild splenomegaly and several varicosities within the left upper quadrant with several gastric varices.
4. Small bilateral pleural effusions with partial atelectasis of both lower lobes.
5. Additional findings above.
Prior GI Procedures:
EGD: none
Colonoscopy: 09/2022 pate -- polyps, single non bleeding colonic angioectasia. bx HP polyps.
Assessment / Plan
-
Pt is a 69yo present with hx metastatic pancreatic CA (diagnosed November 2023 on liver biopsy without need for prior biliary stenting. He follows with Dr. De Los Santos s/p 2 round of chemo and started 3rd round last week- pt unsure of therapy) , anemia
with recent OP transfusion in May, HTN, hyperlipidemia, NIDDM,colon polyps, sleep apnea, obesity with admission with hypotension and weakness. In review with patient and family noted with new chemo last week. He began with weakness and on
admission noted with hypothermia, hypotension requiring pressors, Tachycardia with concern for sepsis, metabolic acidosis, AKD, anemia with hbg down to 5.2 with burgundy stool per staff, thrombocytopenia with plates 40,000, INR 2.20, elevated LFT's
( bili 2.7, AST 76, ALT 43, alk phos 472 and last labs 05/14/23- bili 2.6, AST 116, ALT 96, alk phos 1440) lipase 29 with infectious work up pending. Imaging completed last month with CT noted progression of extensive hepatic mets, large volume
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
proximal common bile duct also appearing dilated measuring up to 11 mm. Distal duct difficult to follow. Last colonoscopy 09/2022 pate -- polyps, single non bleeding colonic angioectasia. bx HP polyps.
-anemia with prior anemia requiring transfusion in May
-red brown stool with large amount soft stool on rectal exam
-concern for sepsis with leukocytosis, hypothermia, tachycardia hypotension(requiring pressors) on admission
-metabolic acidosis
-RONNIE
-metastatic pancreatic Ca with recent new chemo 1 week ago
-elevated LFT's with prior elevation in April
-thrombocytopenia
-coagulopathy
-ascites
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
-hx colonic angioectasia on prior colonoscopy
other med problems:
-HTN
-hyperlipidemia
-NIDDM
-colon polyps
-sleep apnea
-hx obesity with recent wt loss
PLAN:etiology of anemia likely multifactorial with recent chemo, GI bleeding in setting of coagulopathy and thrombocytopenia
agree with transfusion blood and platelets-- trend hbg
hold scope with recent chemo/ thrombocytopenia, sepsis and no signs of aggressive bleeding
if continued anemia and bleeding consider oral vitamin K with coagulopathy
rectal exam with large volume soft stool in rectum will give suppository and add miralax daily
cont work up for sepsis
trend LFT's -- actually some higher level in April -- liver mets may be playing a role
for US abdomen with doppler and cT
agree with sips clears
t/c oncology eval with recent chemo and progression of disease pending imaging results
family updated
-
-
Thank you for consultation and allowing me to participate in the patient's care. Please call the relationship executive GI physician during the after hours with any questions or concerns.
--- NOTE | 2024-07-01 10:32 | W.PN.HOSP.TC ---
Addendum entered and electronically signed by Obed Carrera MD 07/01/24 14:55:
Lower extremity Doppler has been ordered given severe edema, hypertension and high risk for thrombosis.
Results consistent with occlusive thrombus in the right peroneal vein
Given hypotension and shock, we will proceed with echocardiogram to assess RV function and PA pressure.
Patient would be a poor candidate for anticoagulation given severe anemia and coagulopathy.
Will consider IV she interruption when stable hemodynamically.
Original Note:
Today's Communication/Plan
-
Total Critical Care Time__55___ minutes. I was immediately available to the patient and staff. I personally examined, reviewed labs, diagnostic images/reports, interpretations, treatment plans, discussed patient care with other providers and
family or caregivers (if patient is unable to make decisions), entered orders as appropriate and documented the medical record.
Assessment / Plan
Assessment / Plan
Impression:
This is a 69-year-old with metastatic pancreatic cancer and extensive liver mets complicated by ascites, anasarca here with shock physiology suspect hemorrhagic with or without septic shock.
Sepsis with severe septic shock.
Hypotension not responding to IV fluids and requiring multiple pressors.
Metabolic acidosis.
Acute kidney injury.
Acute blood loss anemia
Gastrointestinal hemorrhage presented with maroon stools and acute blood loss anemia
Coagulopathy
Hypoalbuminemia
Metastatic to the liver pancreatic carcinoma treated with multiple rounds of chemotherapy
Other conditions:
Type 2 diabetes
Hypertension
Plan:
Critically ill admitted to intensive care unit.
Severe sepsis with septic shock requiring vasopressors.
Hypothermia, hypotension, leukocytosis
Given presentation most likely source intra-abdominal.
Ascites
Mildly elevated LFTs with hyperbilirubinemia.
Known metastatic disease to the liver.
Blood cultures pending.
Check chest x-ray and urinalysis for completeness.
Broad-spectrum antibiotics: Vancomycin/Zosyn pending cultures.
At some point consider diagnostic paracentesis.
Septic shock with profound hypotension requiring vasopressors.
Increased anion gap metabolic acidosis
Continue alkalinized IV fluids.
Initiated on norepinephrine with possible addition of vasopressin.
Goal for MAP 55-60
Agree with IV albumin
Continue stress dose of hydrocortisone
Acute kidney injury suspect prerenal stimuli with severe hypotension and anemia
Creatinine 1.7, BUN 76 on presentation
Bladder scan with PVR of 760 may be interfering by abdominal ascites.
Magana catheter for retention and strict I's and O's.
Transfuse.
Alcohol needed IV fluids.
Vasopressors to keep MAP 55�60
Acute on chronic anemia
Presentation with maroon stools.
Transfused 2 units of packed red blood cells with pending repeat H&H.
Continue IV PPI.
Gastroenterology consultation.
Continue NPO.
Cardiac coagulopathy.
Coagulopathy.
Elevated PTT/PTT.
Check fibrinogen level.
Check LDH.
Concern for DIC. May require/consider FFP transfusion
Type 2 diabetes.
Update hemoglobin A1c
Basal bolus protocol.
If persistently hyperglycemic while on stress dose of corticosteroids, consider transition to insulin drip.
Hold metformin
Essential hypertension.
Hold lisinopril
Metastatic pancreatic carcinoma
Progressive through multiple rounds of chemotherapy.
Known hepatic mets.
Updated imaging including ultrasound/CT scan of the abdomen pending
Oncology/hematology consultation
Plan is to continue goals of care discussion.
Full code
DVT prophylaxis mechanical
Anticipated Discharge: > 48 hours
Subjective/Interval History
-
Date of Service: July 01, 2024
Objective Data
-
Labs:
Laboratory Results
07/01/24 07/01/24 07/01/24
04:54 14:00 14:00
WBC 20.8 H Pending
Hgb 5.2 L* Cancelled Pending
Hct 16.6 L* Cancelled
Plt Count 40 L
PT 23.0 H
INR 2.02
APTT 52.2 H
Sodium 147 H
Potassium 5.0
Chloride 118 H
Carbon Dioxide 12 L*
BUN 76 H
Creatinine 1.7 H
Glucose 106 H
Calcium 7.8 L
Total Bilirubin 2.7 H
AST 76 H
ALT 43
Alkaline Phosphatase 472 H
07/01/24 07/01/24
14:00 20:00
WBC
Hgb Cancelled
Hct Pending Cancelled
Plt Count Pending
PT
INR
APTT
Sodium Pending
Potassium Pending
Chloride Pending
Carbon Dioxide Pending
BUN Pending
Creatinine Pending
Glucose Pending
Calcium Pending
Total Bilirubin
AST
ALT
Alkaline Phosphatase
Vital Signs:
Vital Signs
Temp Pulse Resp BP Pulse Ox
95.9 F L 101 14 106/60 95
07/01/24 10:02 07/01/24 09:20 07/01/24 09:20 07/01/24 09:20 07/01/24 09:20
I&O
06/30/24 07/01/24 07/02/24
06:59 06:59 06:59
Intake Total 0 / 0 500 / 500
Balance 0 / 0 500 / 500
Physical Exam
-
General: Well Developed and No Apparent Distress
HEENT: Normocephalic, Atraumatic and Moist Mucous Membranes
Respiratory: Clear to Auscultation
Cardiac: Regular Rhythm and S1/S2; Negative Murmur, Rub or Gallop
GI: Soft, Nontender, Normal Bowel Sounds and Distended; Negative Organomegaly
Rectal: Deferred by Provider
Musculoskeletal: No Clubbing, No Cyanosis, No Edema and Other (Bilateral lower extremity edema)
Skin: Negative Rash
Neuro: Nonfocal/Grossly Intact
[2024-07-01] MEDS: VANCOCIN 540 MG IV (11:03)
[2024-07-01 11:28] LABS: Fibrinogen 62 MG/DL (199-459)
[2024-07-01] MEDS: PITRESSIN 100 IV ×2 (11:52→20:56)
--- NOTE | 2024-07-01 11:57 | PHA.VAN.IN ---
Assessment
- Assessment
Renal Function: Appears elevated from baseline (1.7)
Concomitant Antimicrobials: Piperacillin/Tazobactam
Plan
- Plan
Initial / Loading Dose: Vanco 2000mg loading dose administered 07/01/24 0952
Maintenance Regimen: Dose by level
Monitoring: R level 07/02/24 0600
Pharmacokinetics Vancomycin I
- -
Patient Age: 69
Patient Sex: Male
Vancomycin Day #: 1
Indication: Gi / Intra-Abdominal
Requesting Provider: SHARLA
Pertinent Antimicrobial Allergies:
No known drug allergies
Height / Weight:
Height 5 ft 7 in
Actual Weight 90.7 kg
Pertinent Past Medical History: Pancreatic Cancer
- Vital Signs / Lab Results
Temp Pulse Resp BP Pulse Ox
96.5 F L 113 15 106/64 97
07/01/24 11:29 07/01/24 11:30 07/01/24 11:30 07/01/24 11:30 07/01/24 10:30
Lab Results - Hematology
07/01/24
04:54
WBC 20.8 H
Lab Results - Chemistry
07/01/24
04:54
BUN 76 H
Creatinine 1.7 H
Estimated Creat Clear 45
Albumin 1.6 L
--- NOTE | 2024-07-01 12:00 | PTCARENOTE ---
Pt assessed.No change in assessment noted.Vasopressin initiated as ordered.
--- NOTE | 2024-07-01 12:24 | CON.ONC ---
Addendum entered and electronically signed by Geoff De Los Santos MD 07/01/24 12:54:
Consult date/time 07/01/2024, 12:54 pm
Original Note:
Impression
Impression
Severe sepsis with septic shock requiring vasopressors.
Hypothermia, hypotension, leukocytosis
Acute kidney injury
Acute on chronic anemia - Suspect GI bleed as presented with maroon stools.
Metastatic pancreatic carcinoma
Plan
Plan
Broad-spectrum antibiotics: Vancomycin/Zosyn pending cultures.
Initiated on norepinephrine with possible addition of vasopressin.
Acute on chronic anemia
Presentation with maroon stools.
Transfused 2 units of packed red blood cells with pending repeat H&H.
Metastatic pancreatic carcinoma
Progressive through multiple lines of chemotherapy.
Currently received Onivyde FOLF with poor tolerability.
Discussed code status and goals of care.
Not sure his PS will support restarting chemotherapy, definitely not at full dose for C2.
Discussed goals of care and code status with both him and his .
Patient poor candidate for resuscitation and high risk for cardiopulm collapse but still insists on full code. 'I'm not ready to give up.'
Explained that he is unlikely to be eligible to resume Tx unless PS improves significantly which is unlikely.
Palliative care eval if possible (don't think it is avail inpatient).
Will follow.
Patient History
History of Present Illness
CC: Weakness
HPI: 69-year-old with metastatic pancreatic cancer currently on 3rd line chemotherapy (failed FOLFIRINOX and [place]/Abraxane) now with progressive disease and extensive liver mets complicated by ascites and anasarca presenting to the emergency
department from home with profound weakness and hypotension. Recent goals of care discussions suggesting transitioning to palliative hospice care were not accepted so he was started on 3rd line Ovivyde + FOLF on 06/23 (C1)
He has been failing at home waiting for a hospital bed. A slipped off his chair today and he was able to get himself off the ground. Son helped him to get back into his seat but then he slipped again. He initially did not want to come to the
emergency department but spouse found him ashen and pale. He was very weak and eventually agreed to come to the emergency department. EMS report hypotension given about half a liter of normal saline and then transferred to the ED.
On arrival in the emergency department, temp = 93 rectal, blood pressure was 60/40 with a pulse of 72 and SpO2 = 95% on room air.
CBC shows a white count of 20.8, hemoglobin of 5.2 and a platelet count of 40. INR was 2.0. Admitted to ICU for hypotension and sepsis
Past-Medical/Surgical History
PMH:
Stage IV pancreatic Ca
Type 2 diabetes mellitus
Hyperlipidemia
Colonic polyps
Hypertension
Obstructive sleep apnea on CPAP
Morbid obesity
PSH:
Appendectomy
Tonsillectomy
Root canal
SH:
.
Former Smoker. Year Quit 1988.
Social use of alcohol.
Occupational Status: Current: bulk truck driver.
FH
Father /lungs cancer, coronary bypass
Mother/ Emphysema
Patient Medication
�Medication �Instructions �Recorded �Confirmed �Last Taken �Type
atorvastatin 40 mg tablet 40 mg PO DAILY High Cholesterol 11/27/23 07/01/24 06/30/24 09:00 History
lisinopril 40 mg tablet 40 mg PO DAILY Blood Pressure 11/27/23 07/01/24 06/30/24 09:00 History
metformin 1,000 mg tablet 1,000 mg PO BID Diabetes 11/27/23 07/01/24 06/30/24 09:00 History
furosemide 20 mg tablet (Lasix) 20 mg PO BID Fluid 05/28/24 07/01/24 06/30/24 09:00 History
Retention/Swelling
fluorouracil 500 mg/10 mL 4,940 mg IV . DIRECTED Cancer 07/01/24 07/01/24 06/23/24 History
intravenous solution
irinotecan liposomal 4.3 mg/mL 144 mg IV . DIRECTED Cancer 07/01/24 07/01/24 06/23/24 History
intravenous
prochlorperazine maleate 10 mg 10 mg PO Q6HPRN PRN nausea 07/01/24 07/01/24 Unknown History
tablet
Active Medications
Generic Name Dose Route Start Last Admin
Trade Name Freq PRN Reason Stop Dose Admin
Dextrose 12.5 grams 07/01/24 10:29
Dextrose 50% (0.5 Grams/Ml) 50 Ml Syringe IV 07/29/24 10:28
[id number] PRN
hypoglycemia
Protocol
Glucagon 1 mg 07/01/24 10:29
Glucagon 1 Mg Vial IM 07/29/24 10:28
PRN PRN
hypoglycemia
Protocol
Heparin Sodium (Porcine) 500 unit 07/01/24 11:36
Heparin Flush Pf (100 Unit/Ml) 5 Ml Syringe IV 07/29/24 11:35
PRN PRN
PORT ACCESS
Hydrocortisone Sodium Succinate 50 mg 07/01/24 12:00
Hydrocortisone Sodium Succinate 100 Mg/2 Ml Vial IV 07/29/24 11:59
Q6 HAILE
Pantoprazole Sodium 80 mg in 100 mls @ 10 mls/hr 07/01/24 06:00 07/01/24 06:10
Protonix IV 07/01/24 15:00 100 mls
Q10H HAILE Administration
8 MG/HR
Sodium Bicarbonate 150 meq/ 1,150 mls @ 125 mls/hr 07/01/24 06:15 07/01/24 09:17
Sterile Water IV 1,150 mls
.Q9H12M HAILE Administration
Norepinephrine Bitartrate 4 mg in 250 mls @ 0 mls/hr 07/01/24 09:47
Levophed IV
PER PROTOCOL HAILE
Protocol
Per Protocol
Vancomycin HCl 1 each/ Device 0 mls @ 0 mls/hr 07/01/24 09:47
IV
PER PROTOCOL HAILE
As Directed
Vasopressin 20 units in 100 mls @ 0 mls/hr 07/01/24 10:15 07/01/24 11:52
Pitressin IV 100 mls
PER PROTOCOL HAILE Administration
Protocol
Per Protocol
Albumin Human 25 grams in 100 mls @ 60 mls/hr 07/01/24 12:00
Flexbumin IV 07/01/24 21:39
Q4 HAILE
Pantoprazole Sodium 80 mg in 100 mls @ 10 mls/hr 07/01/24 15:00
Protonix IV
Q10H HAILE
8 MG/HR
Piperacillin Sod/Tazobactam Sod 3.375 gram in 50 mls @ 100 mls/hr 07/01/24 12:00
Zosyn IV
Q6H HAILE
Protocol
Insulin Aspart 0 units 07/01/24 11:30
Insulin Aspart Low Resistance 300 Units/3 Ml Pen.Injctr SC 07/29/24 11:29
AC HAILE
Protocol
Polyethylene Glycol 17 grams 07/01/24 12:00
Polyethylene Glycol Powder 17 Grams Packet PO 07/29/24 11:59
DAILY HAILE
Review of Systems
-
History Source: Patient, Family and Records
Constitutional: Reports No Appetite and Fatigue
Respiratory: Reports No Symptoms
Cardiac: Reports No Symptoms
GI: Reports Bloated
Musculoskeletal: Reports Muscle Weakness
Physical Exam
-
General: Appears Chronically Ill and Morbidly Obese
Cardiology: S1 and S2
Pulmonary: Clear
GI: Distended and Hepatomegaly
Extremities: Edema
Neurology: Non Focal
Labs
Lab Results
WBC 20.8 10^3/uL (4.8-10.8) H 07/01/24 04:54
RBC 1.55 10^6/uL (4.70-6.10) L 07/01/24 04:54
Hgb Cancelled 07/01/24 20:00
Hct Cancelled 07/01/24 20:00
MCV 107.1 fL (80.0-94.0) H 07/01/24 04:54
MCH 33.5 pg (27.0-31.0) H 07/01/24 04:54
MCHC 31.3 g/dL (33.0-37.0) L 07/01/24 04:54
RDW 26.5 % (11.5-14.5) H 07/01/24 04:54
Plt Count 40 10^3/uL (130-400) L 07/01/24 04:54
MPV 12.5 fL (7.4-10.4) H 07/01/24 04:54
Abs Immat Gran (auto) 0.3 10^3/uL (0-0.05) H 07/01/24 04:54
Absolute Neuts (auto) 19.7 10^3/uL (1.4-6.5) H 07/01/24 04:54
Absolute Lymphs (auto) 0.3 10^3/uL (1.2-3.4) L 07/01/24 04:54
Absolute Monos (auto) 0.5 10^3/uL (0.1-0.6) 07/01/24 04:54
Absolute Eos (auto) 0.0 10^3/uL (0-0.7) 07/01/24 04:54
Absolute Basos (auto) 0.1 10^3/uL (0-0.2) 07/01/24 04:54
Immature Gran % 1.2 % (0-0.5) H 07/01/24 04:54
Neutrophils % 94.8 % (42.2-75.2) H 07/01/24 04:54
Lymphocytes % 1.3 % (20.5-51.1) L 07/01/24 04:54
Monocytes % 2.5 % (1.7-9.3) 07/01/24 04:54
Eosinophils % 0.0 % (0-6) 07/01/24 04:54
Basophils % 0.2 % (0-2) 07/01/24 04:54
Creatinine 1.7 mg/dL (0.7-1.3) H 07/01/24 04:54
Vital Signs
Vital Signs
Temp Pulse Resp BP Pulse Ox
96.5 F L 113 15 106/64 97
07/01/24 12:00 07/01/24 11:30 07/01/24 11:30 07/01/24 11:30 07/01/24 10:30
[2024-07-01] MEDS: DULCOLAX 10 MG RECTAL (13:16)
[2024-07-01] MEDS: ZOSYN 50 IV ×2 (13:16→17:54)
[2024-07-01] MEDS: SOLU-CORTEF 50 MG IV ×2 (13:16→17:54)
[2024-07-01] MEDS: FLEXBUMIN 100 IV ×3 (13:17→21:49)
--- NOTE | 2024-07-01 13:45 | PTCARENOTE ---
Pt continent for large BM formed brown with liquid burgundy.Dr Petersen made aware.
--- NOTE | 2024-07-01 15:30 | PTCARENOTE ---
PICC placed.Pt transported to IR via bed.
[2024-07-01 16:51] LABS: Body Fluid Albumin < 1.0 g/dl; Body Fluid Amylase < 30 U/L; Body Fluid LDH 106 U/L; Body Fluid Protein < 2.0 g/dl
--- NOTE | 2024-07-01 17:20 | VATNOTE ---
Addendum entered by Jessica Springer RN 07/01/24 17:22:
PCN at the bedside during dressing change. Informed PCN the PICC line can now be used and to change all IV tubing prior to connecting to PICC line.
Original Note:
Called to IR d/t pt oozing blood from PICC site and had a saturated dressing. Old dressing removed and using sterile technique retracted PICC 3 cm and redressed applying quick clot to site. Will continue to monitor.
[2024-07-01 17:52] LABS: Venous Blood Gas B.E. -4.9 mmol/L (-4 to +4); Venous Blood Gas HCO3 20.6 mmol/L (22-27); Venous Blood Gas O2 Sat % 99.2 %; Venous Blood Gas pCO2 39 mmHg (35-48); Venous Blood Gas pH 7.33 (7.32-7.43); Venous Blood Gas pO2 128 mmHg (30-50)
--- NOTE | 2024-07-01 17:58 | PTCARENOTE ---
1730-Pt transported from IR/CT scan to ICU.Right DL PICC saturated with bloody drainage.VAT RN at bedside repositioned and redressed PICC. Paracentesis and Ct abdomen completed.Pt assessed.No change in assessment noted.
[2024-07-01 18:07] LABS: Blood Urea Nitrogen 82 mg/dl (9-20); Calcium 7.8 mg/dl (8.4-10.2); Carbon Dioxide 21 mmol/L (22-30); Chloride 113 mmol/L (98-107); Estimated Creatinine Clearance 51 ml/min; Glucose 172 mg/dl (70-99); Phosphorus 5.8 mg/dl (2.5-4.5); Potassium 5.1 mmol/L (3.5-5.1); Sodium 145 mmol/L (135-145); eGFR 50.71
[2024-07-01 18:11] LABS: Urine Albumin 2+ (Neg - Trace); Urine Bilirubin Negative (Negative); Urine Character Clear (Clear); Urine Color Yellow; Urine Glucose Negative (Negative); Urine Ketone Negative (Negative); Urine Leukocyte Negative (Negative); Urine Nitrite Negative (Negative); Urine Occult Blood 3+ (Negative); Urine Specific Gravity 1.015 (<1.030); Urine Urobilinogen Negative (Neg - 1+)
[2024-07-01 18:20] LABS: Hematocrit 19.6 % (39.0-52.0); Hemoglobin 6.6 g/dL (13.0-18.0); Mean Corp Hgb Conc. 33.7 g/dL (33.0-37.0); Mean Corpuscular Hgb 32.8 pg (27.0-31.0); Mean Corpuscular Volume 97.5 fL (80.0-94.0); Mean Platelet Volume 10.1 fL (7.4-10.4); Platelet Count 28 10^3/uL (130-400); Red Blood Cell Count 2.01 10^6/uL (4.70-6.10); Red Cell Dist. Width 22.5 % (11.5-14.5); White Blood Cell Count 7.7 10^3/uL (4.8-10.8)
[2024-07-01 18:22] LABS: Body Fluid Mononuclear 44.5 %; Body Fluid Polymorphonuclear 55.5 %; Body Fluid WBC 101 /CUMM
[2024-07-01] MEDS: SODIUM BICARBONATE IV (18:30)
[2024-07-01 18:32] LABS: Body Fluid Second Tech EYM
[2024-07-01 18:37] LABS: Fibrinogen < 60 MG/DL (199-459); TSH Reflex To Free T4 5.66 uIU/ml (0.47-4.68)
[2024-07-01 18:44] LABS: Urine Amorphous Seen; Urine Squamous Cell 0-2 /LPF (Few)
[2024-07-01 18:46] LABS: Urine Bacteria Many (Negative); Urine Hyaline Cast >15 /LPF (0-2); Urine Red Blood Cell 0-2 /HPF (0-2); Urine White Cell 0-2 /HPF (0-5)
--- NOTE | 2024-07-01 18:56 | PTCARENOTE ---
Labs resulted.ENRIQUETA Hood made aware of Fibrinogen and Platelet results.Right PICC draining bloody drainage.VAT RN made aware and at bedside.
[2024-07-01 18:58] LABS: % Basophils 0.5 % (0-2); % Immature Granulocytes 0.4 % (0-0.5); % Lymphocytes 2.9 % (20.5-51.1); % Monocytes 3.2 % (1.7-9.3); Absolute Lymphocytes 0.2 10^3/uL (1.2-3.4); Absolute Monocytes 0.3 10^3/uL (0.1-0.6); Absolute Neutrophils 7.2 10^3/uL (1.4-6.5); Anisocytosis 2+; Macrocytosis 2+; Normal RBC Morphology No; Nucleated Red Blood Cells % 1.2 % (-); Ovalocytes 1+
[2024-07-01 19:07] LABS: Free T4 1.23 ng/dl (0.78-2.19)
--- NOTE | 2024-07-01 19:30 | W.PN.UPDATE ---
Update Note
Progress Note Update
07/02/24
190- Lab results platelets 28, hgb 6.6, INR 2.02, and fibrinogen <60, reviewed with Dr. Florez reimbursement coordinator and Dr. Nick, oncologist. Recommendations received: give 2 u FFP, transfuse if platelets are under 20 unless s/s of bleeding, repeat CBC
at 2300, and transfuse PRBCs <6.
[2024-07-01] MEDS: NOVOLOG FLEXPEN-LOW RESISTANCE SC (19:52)
--- NOTE | 2024-07-01 20:00 | PTCARENOTE ---
undertaker helper, pt aaox3, denies pain, SR 60-90s, LAC IV/RSQ port/RDL PICC WNL- Levo,Vaso,Protonix,Bicarb infusing per work list. Sat 95% on 2LNC. Magana draining adequate amt taras yellow urine. POC discussed w/pt & family at bedside. awaiting plan
for transfusing blood products.
--- NOTE | 2024-07-01 20:39 | VATNOTE ---
Called to assess right PICC dressing. Saturated with blood and continuing to ooze. Dressing removed. 2 quickclot dressing applied along with a sterile pressure dressing. ABDs applied exterior to dressing along with jamal wrap. Dry and intact at this
time.
--- NOTE | 2024-07-01 22:15 | PTCARENOTE ---
2u FFP complete. vss.
[2024-07-02] VITALS (79 sets, daily range): BP systolic 83–140; BP diastolic 57–90; BMI 29.4
--- NOTE | 2024-07-02 | PTCARENOTE ---
liquid burgundy stool ongoing, no changes in pt assessment, CBC to lab.
[2024-07-02] MEDS: ZOSYN 50 IV ×4 (00:01→17:39)
[2024-07-02] MEDS: SOLU-CORTEF 50 MG IV ×4 (00:02→17:39)
[2024-07-02 00:15] LABS: Glucose - Point of Care 215 mg/dl (70-99)
[2024-07-02] MEDS: NOVOLOG FLEXPEN-LOW RESISTANCE 2 UNITS SC ×2 (00:15→05:58)
[2024-07-02 00:35] LABS: Hematocrit 14.5 % (39.0-52.0); Hemoglobin 4.9 g/dL (13.0-18.0); Mean Corp Hgb Conc. 33.8 g/dL (33.0-37.0); Mean Corpuscular Hgb 33.1 pg (27.0-31.0); Mean Platelet Volume 11.6 fL (7.4-10.4); Platelet Count 12 10^3/uL (130-400); Red Blood Cell Count 1.48 10^6/uL (4.70-6.10); Red Cell Dist. Width 22.1 % (11.5-14.5); White Blood Cell Count 3.1 10^3/uL (4.8-10.8)
[2024-07-02 01:24] LABS: INR 2.02; PT 23.3 Sec (11.4-14.6)
--- NOTE | 2024-07-02 05:37 | PTCARENOTE ---
no changes in assessment. blood products continue per TAR.
[2024-07-02] MEDS: LEVOPHED 250 IV (05:41)
[2024-07-02] MEDS: PITRESSIN 100 IV (05:41)
[2024-07-02 05:59] LABS: Glucose - Point of Care 218 mg/dl (70-99)
[2024-07-02] MEDS: PROTONIX 100 IV (07:39)
[2024-07-02] MEDS: SODIUM BICARBONATE 1150 MEQ IV (07:40)
--- NOTE | 2024-07-02 08:10 | PTCARENOTE ---
Assumed care of patient at 0700. PRBC infusing. Levophed, protonix, vasopressin, HCO3 gtts infusing. MAP 84. Sinus bradycardia noted. A&O x4. Pt incontinent clear gelatinous stool with small maroon clots present. Skin icteric, edema throughout.
Assessment as noted. Plan of care discussed
--- NOTE | 2024-07-02 08:39 | W.PN.INTV ---
Today's Communication / Plan
Recommendations
.
Assessment
-
Pt is a 69yo M pmh pancreatic cancer w mets to liver, HTN, HLD, DM type 2 admitted for shock.
Sepsis with severe septic shock.
Hypotension not responding to IV fluids and requiring multiple pressors.
Metabolic acidosis.
Acute kidney injury.
Acute blood loss anemia
Gastrointestinal hemorrhage presented with maroon stools and acute blood loss anemia
Coagulopathy
Hypoalbuminemia
Metastatic to the liver pancreatic carcinoma treated with multiple rounds of chemotherapy
Plan:
Leukocytosis
Septic shock
- chronic leukocytosis, however in setting of shock cannot rule out infection
- urine cx, blood cx
- empiric vancomycin and zosyn
- CXR no acute cardiopulmonary process
- CT abd/pelvis: b/l lower lobe pneumonia, increased hepatic metastatic disease, ascites
- abd u/s: portal vein thrombosis
- paracentesis - drained 7.1 L ascitic fluid, SBP r/o
- phosphorus elevated
DVT
- lower extremity doppler: right peroneal vein
- unable to anticoagulate due to anemia and thrombocytopenia
HoTN
- hemorrhagic vs septic shock
- total body fluid overload w anasarca from portal htn
- hold home lasix and lisinopril for hotn
- pressors, stress dose steroids
Anemia
Coagulopathy
- Hb trending downwards
- maroon stools continue
- transfuse pRBCs, platelets
- transfuse Hb<7 or Hb<8 w active bleed
- transfuse plt<10 or plt<50 w active bleed
- H&H q8h
- fibrinogen undetectable
- GI consulted
RONNIE
Anion gap metabolic acidosis
- Cr elevated
DM type II
- blood glucose q6h
- HbA1c pending
Elevated TSH
- TSH 5.66
Diet: clear liquids
DVT ppx: SCDs
Code status: FULL CODE
Subjective Dataa
Subjective Data
Date of Service:
Date of Service: July 02, 2024
Chief Complaint: Sports Information Director Follow Up
Subjective:
Pt received 2 units FFP overnight. Maroon colored stools continued.
Objective Data
Data Reviewed
Vital Signs / I&O / Oxygen:
Vital Signs
Temp Pulse Resp BP Pulse Ox
97.7 F 58 17 112/90 95
07/02/24 08:00 07/02/24 08:00 07/02/24 08:00 07/02/24 08:00 07/02/24 07:00
Intake and Output
07/01/24 07/02/24 07/03/24
06:59 06:59 06:59
Intake Total 0 / 0 6707.0 / 6858.5 553.0 / 553.0
Output Total 1325 / 1355 60 / 60
Balance 0 / 0 5382.0 / 5503.5 493.0 / 493.0
SaO2 95
Nasal Cannula flow liters per 2
minute
Physical Exam
General: Comfortable
HEENT: Normocephalic and Other (scleral icterus)
Cardiovascular: S1-S2 and Regular Rhythm
Respiratory: Clear
GI: Soft, Non Distended, Flat, Non Tender and Normal Bowel Sounds
Skin: Dry and Jaundice
Labs/Micro/Reports
Laboratory Results
07/01/24 07/02/24
04:54 00:52
PT 23.0 H 23.3 H
INR 2.02 2.02
APTT 52.2 H
Microbiology
07/01/24 07:03 Blood/Venous Blood Culture - Preliminary
No Growth in 24 hours- Final report to follow
--- NOTE | 2024-07-02 09:13 | W.PN.ONC2 ---
Today's Communication / Plan
-
.
Impression
Impression
p/w Hypothermia, hypotension, leukocytosis, and maroon stools
critically ill in ICU on pressors and requiring transfusion support for anemia and thrombocytopenia
PNA
Acute kidney injury
DIC vs liver dysfunction coagulopathy
Acute on chronic anemia - Suspect GI bleed as presented with maroon stools. s/p 4U PRBC, 3U SDP, & 2FFP
Metastatic pancreatic ca POD through multiple lines of therapy -poor tolerance of current Onivyde FOLF C1 on 06/23, GCSF 06/26
Occlusive thrombus in the right peroneal vein, main portal vein with thrombus
ascites s/p para 7100cc drained, no cytology sent
Plan
Plan
on IVabx, stress dose hydrocortisone, pressors
follow cultures
GI following for suspected GIB
AC on hold due to c/f GIB
transfuse Hgb <7 or as needed for sxs anemia
transfuse platelets <20 or as needed for sxs anemia
cryo prn fibrinogen <150 if bleeding, FFP prn INR >1.4 if bleeding
vitamin K 5mg now
check coags and CBC daily
unlikely to be eligible to resume Tx unless PS improves significantly which is unlikely.
Palliative care consult for advanced care planning and continued GOC. Comfort care, hospice appropriate.
Will follow.
Subjective/Objective
Subjective
event overnight reviewed
Hgb 4.9, platelets 12,000
Vital Signs:
Vital Signs
Temp Pulse Resp BP Pulse Ox
97.7 F 58 17 112/90 100
07/02/24 08:00 07/02/24 08:00 07/02/24 08:00 07/02/24 08:00 07/02/24 08:00
Lab Results:
Laboratory Data
WBC 3.1 10^3/uL (4.8-10.8) L 07/02/24 00:09
Hgb 4.9 g/dL (13.0-18.0) L* D 07/02/24 00:09
Plt Count 12 10^3/uL (130-400) L* D 07/02/24 00:09
PT 23.3 Sec (11.4-14.6) H 07/02/24 00:52
INR 2.02 07/02/24 00:52
APTT 52.2 Sec (23.4-35.0) H 07/01/24 04:54
eGFR 50.71 07/01/24 17:44
Physical Exam
HEENT: Moist Mucous Membranes; No Jaundice
Cardiology: S1 and S2 (bradycardia)
Pulmonary: Other (diminished, 2L NC, unlabored)
GI: Soft
Extremities: Pulses Present
[2024-07-02 10:21] LABS: Venous Blood Gas B.E. 1.1 mmol/L (-4 to +4); Venous Blood Gas HCO3 26.6 mmol/L (22-27); Venous Blood Gas O2 Sat % 98.4 %; Venous Blood Gas pCO2 46 mmHg (35-48); Venous Blood Gas pH 7.37 (7.32-7.43); Venous Blood Gas pO2 80 mmHg (30-50)
[2024-07-02 10:26] LABS: Hematocrit 21.8 % (39.0-52.0); Hemoglobin 7.5 g/dL (13.0-18.0); Mean Corp Hgb Conc. 34.4 g/dL (33.0-37.0); Mean Corpuscular Hgb 32.9 pg (27.0-31.0); Mean Corpuscular Volume 95.6 fL (80.0-94.0); Mean Platelet Volume 11.3 fL (7.4-10.4); Platelet Count 14 10^3/uL (130-400); Red Blood Cell Count 2.28 10^6/uL (4.70-6.10); White Blood Cell Count 3.3 10^3/uL (4.8-10.8)
[2024-07-02 10:29] LABS: INR 1.84; PT 21.7 Sec (11.4-14.6)
[2024-07-02 10:30] LABS: APTT 46.3 Sec (23.4-35.0)
--- NOTE | 2024-07-02 10:37 | W.CON.PAL ---
Consultation
-
Date/Time Consultation Requested: 07/02
Date/Time Consultation Performed: 07/02
Requesting Provider: oncology
Performing Provider: Nivia Rodas
Reason for Consult: Goals of Care Discussion
Reason for Admission
Illness Course/HPI
69 year old M with PMH of metastatic pancreatic cancer to liver currently on chemotherapy with continued POD c/b recurrent ascites/anasarca admitted from home with weakness and hypotension.
Per chart review, follows with [place] [facility]. Last chemo about 1 week ago, requiring blood transfusions periodically as well. Patient apparently had a fall, could not get up and was extremely weak and pale prompting 911. Was hypotensive on EMS
arrival, given NSS and transferred to the ED.
On arrival he was hypothermic to 93 rectal, blood pressure was 60/40 with a pulse of 72 and he was satting 95% on room air.
Labs significant for white count of 20.8, hemoglobin of 5.2 and a platelet count of 40. INR was 2.0. Electrolytes notable for a potassium of 5.0, bicarb of 12, BUN of 76 and a creatinine of 1.7. Total bilirubin was 2.7, AST 76 ALT 43. Alk phos
407. Heme occult +. Given 2 units PRBCs, started on levo and antibiotics and sent to ICU for further management. Seen by GI - holding off on colonoscopy for now.
CT with continued progression of liver mets as well as massive anasarca/ascites. +R DVT. Not a candidate for AC.
Seen by oncology - likely not a further treatment candidate at this time. Per notes, patient 'not ready to give up.' Continues to be a full code.
COnsult for GOC.
Seen at bedside with no family present. Patient reports feeling well today, says his stool is less red and is drinking fluids okay and was told things are looking better. Discussed need for transfusions still this AM and still on BP support. He was
unaware that he is likely no longer a candidate for cancer directed therapy. Says if thats the case, would need to talk with his about next steps and asked if he was on hospice right now. Explained he is not currently on hospice but it is
likely the best next step. Hopeful to stabilize and get off pressors and not require transfusions in the coming days and get home. He did confirm full code for now until we get a better idea of what the medical plan is.
SPoke with via phone. Also discussed hospice as likely next step. SHe is requesting further clarity from oncology about their recommendations for hospice and if treatment is an option. Discussed low likelihood of any benefit from rehab at this
point and high risk for complications and is progressing despite cancer treatment. Discussed hospice services in detail.
Pain & Symptom Assessment
[place] Symptom Scale 0=none, 10=worst
Pain: 0
Appetite: 0
Objective Data
-
Objective Data:
Vital Signs
Temp Pulse Resp BP Pulse Ox
97.7 F 58 17 112/90 100
07/02/24 08:00 07/02/24 08:00 07/02/24 08:00 07/02/24 08:00 07/02/24 08:00
Laboratory Results
07/02/24 10:07
PT 21.7 Sec (11.4-14.6) H 07/02/24 10:07
INR 1.84 07/02/24 10:07
APTT 46.3 Sec (23.4-35.0) H 07/02/24 10:07
Total Protein 4.5 g/dl (6.3-8.2) L 07/01/24 04:54
Albumin 1.6 g/dl (3.5-5.0) L 07/01/24 04:54
Free T4 1.23 ng/dl (0.78-2.19) 07/01/24 17:44
Urine Color Yellow 07/01/24 17:44
Urine Clarity Clear (Clear) 07/01/24 17:44
Urine pH 5.0 (5.0-9.0) 07/01/24 17:44
Ur Specific [place] 1.015 (<1.030) 07/01/24 17:44
Urine Ketones Negative (Negative) 07/01/24 17:44
Urine Bilirubin Negative (Negative) 07/01/24 17:44
Palliative Performance Scale
Palliative Performance Scale:
PPS Level Ambulation Activity & Evidence of Disease Self Care Intake Conscious Level
100% Full Normal Activity & Work; Full Intake Full
No Evidence of Disease
90% Full Normal Activity & Work; Full Normal Full
Some Evidence of Disease
80% Full Normal Activity with Effort Full Normal or Full
Some Evidence of Disease Reduced
70% Reduced Unable Normal Job/Work Full Normal or Full
Significant Disease Reduced
60% Reduced Unable Hobby/Housework Occasional Normal or Full or Confusion
Significant Disease Assistance Reduced
50% Mainly Sit/Lie Unable to do Any Work Considerable Normal or Full or Confusion
Extensive Disease Assistance Req'd Reduced
40% Mainly in Bed Unable to do Most Activity Mainly Assistance Normal or Full or Drowsy;
Extensive Disease Reduced +/- Confusion
30% Totally Bed Unable to do Any Activity Total Care Normal or Full or Drowsy;
Bound Extensive Disease Reduced +/- Confusion
20% Totally Bed Bound Unable to do Any Activity Total Care Minimal to Full or Drowsy;
Extensive Disease Sips +/- Confusion
10% Totally Bed Bound Unable to do Any Activity Total Care Mouth Care Drowsy or Coma;
Extensive Disease Only +/- Confusion
0%
PPS Score Level:
Physical Exam
-
General: Appears Chronically Ill
HEENT: Normocephalic
Respiratory: Clear to Auscultation
Peripheral Vascular: No Edema
GI: Soft
Skin: Warm
Neuro: AO x 3
Assessment / Plan
-
Assessment/Plan:
69 year old M with metastatic pancreatic cancer to liver, progressed through multiple treatment lines admissed with weakness and hypotension. +b/l PNA, pancytopenia requiring transfusions, pressors.
- see HPI for discussion with patient
- would have oncology clarify with patient and that he is likely not a treatment candidate further and recommend hospice
- would continue supportive care, wean pressors as able
- hospice appropriate
Care Reviewed
Data Reviewed
Radiology procedure: Image Reviewed
Medical Tests: I reviewed
Reviewed with: Patient, Family, Physician and Nurse
[2024-07-02 10:38] LABS: Blood Urea Nitrogen 78 mg/dl (9-20); Calcium 7.8 mg/dl (8.4-10.2); Carbon Dioxide 27 mmol/L (22-30); Chloride 112 mmol/L (98-107); Estimated Creatinine Clearance 42 ml/min; Glucose 210 mg/dl (70-99); Magnesium 2.1 mg/dl (1.6-2.3); Potassium 3.9 mmol/L (3.5-5.1); Sodium 146 mmol/L (135-145); eGFR 46.93
[2024-07-02 10:47] LABS: Vancomycin Random 12.5 ug/ml
[2024-07-02 11:32] LABS: Glycohemoglobin (HgbA1c) 5.3 % (4.0-5.6)
[2024-07-02 11:42] LABS: Glucose - Point of Care 263 mg/dl (70-99)
[2024-07-02] MEDS: MEPHYTON 5 MG PO (11:42)
[2024-07-02] MEDS: NOVOLOG FLEXPEN 2 UNITS SC ×2 (11:43→17:33)
[2024-07-02] MEDS: NOVOLOG FLEXPEN-LOW RESISTANCE 3 UNITS SC (11:44)
[2024-07-02 11:52] LABS: Fibrinogen 90 MG/DL (199-459)
--- NOTE | 2024-07-02 12:00 | PTCARENOTE ---
Labs drawn and resulted. IVF stopped. BMs continue but appearing brown, gelatinous.
--- NOTE | 2024-07-02 12:47 | W.PN.GI.CBS2 ---
Today's Communication / Plan
-
continue current mx
monitor H/H
GOC discussion
Assessment / Plan
-
Pt is a 69yo present with hx metastatic pancreatic CA (diagnosed November 2023 on liver biopsy without need for prior biliary stenting. He follows with Dr. De Los Santos s/p 2 round of chemo and started 3rd round last week- pt unsure of therapy) , anemia
with recent OP transfusion in May, HTN, hyperlipidemia, NIDDM,colon polyps, sleep apnea, obesity with admission with hypotension and weakness. In review with patient and family noted with new chemo last week. He began with weakness and on
admission noted with hypothermia, hypotension requiring pressors, Tachycardia with concern for sepsis, metabolic acidosis, AKD, anemia with hbg down to 5.2 with burgundy stool per staff, thrombocytopenia with plates 40,000, INR 2.20, elevated LFT's
( bili 2.7, AST 76, ALT 43, alk phos 472 and last labs 05/14/23- bili 2.6, AST 116, ALT 96, alk phos 1440) lipase 29 with infectious work up pending. Imaging completed last month with CT noted progression of extensive hepatic mets, large volume
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
proximal common bile duct also appearing dilated measuring up to 11 mm. Distal duct difficult to follow. Last colonoscopy 09/2022 pate -- polyps, single non bleeding colonic angioectasia. bx HP polyps.
-anemia with prior anemia requiring transfusion in May
-red brown stool with large amount soft stool on rectal exam
-concern for sepsis with leukocytosis, hypothermia, tachycardia hypotension(requiring pressors) on admission
-metabolic acidosis
-RONNIE
-metastatic pancreatic Ca with recent new chemo 1 week ago
-elevated LFT's with prior elevation in April. likely secondary to mets
-severe thrombocytopenia
-coagulopathy
-ascites
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
-hx colonic angioectasia on prior colonoscopy
other med problems:
-HTN
-hyperlipidemia
-NIDDM
-colon polyps
-sleep apnea
-hx obesity with recent wt loss
plan
Etiology of his anemia can be multifactorial -metastatic carcinoma with recent chemo with BM suppression / GI bleeding in the setting of severe thrombocytopenia, coagulopathy with ischemic colitis vs others
Continue monitor H&H.
Continue supportive care with correction of platelets/coagulopathy as per medical team/ ICU team if bleeding persists
Continue sepsis management as per medical team
hemodynamic stability
Discussed with patient/family. Will hold off on colonoscopy( with severe thrombocytopenia/ coagulopathy/sepsis ) . If significant bleeding will recommend CTA or bleeding scan
CLD. advance as tolerated if Hb stable and no bleeding
Continue follow-up with oncology -goals of care discussion
no further recommendations at this point. will s/o. please call us back if any questions
Total Time Spent with Patient (in minutes): 35
Subjective
Subjective
Date of Service: July 02, 2024
as per RN more brownish stool with some blood sediment ( no gross bleeding )
Objective
Data Reviewed
Laboratory Data:
Laboratory Results
07/02/24 10:07
07/02/24 10:07
Laboratory Results
PT 21.7 Sec (11.4-14.6) H 07/02/24 10:07
INR 1.84 07/02/24 10:07
APTT 46.3 Sec (23.4-35.0) H 07/02/24 10:07
Phosphorus 5.8 mg/dl (2.5-4.5) H 07/01/24 17:44
Magnesium 2.1 mg/dl (1.6-2.3) 07/02/24 10:07
Total Bilirubin 2.7 mg/dl (0.2-1.3) H 07/01/24 04:54
AST 76 U/L (17-59) H 07/01/24 04:54
ALT 43 U/L (0-50) 07/01/24 04:54
Alkaline Phosphatase 472 U/L (38-126) H 07/01/24 04:54
Lipase 29 U/L (23-300) 07/01/24 04:54
Vital Signs and I&O:
Vital Signs
Temp Pulse Resp BP Pulse Ox
97.5 F 91 16 102/75 100
07/02/24 11:46 07/02/24 11:00 07/02/24 11:00 07/02/24 11:00 07/02/24 11:00
I&O
07/01/24 07/02/24 07/03/24
06:59 06:59 06:59
Intake Total 0 / 0 6707.0 / 6858.5 1558.5 / 1558.5
Output Total 1325 / 1355 355 / 355
Balance 0 / 0 5382.0 / 5503.5 1203.5 / 1203.5
Physical Exam
Physical Exam
GI: Soft, Distended and Non Tender
[2024-07-02 13:02] LABS: Reticulocyte Count 1.4 % (0.4-2.8)
--- NOTE | 2024-07-02 14:03 | W.PN.UPDATE ---
Update Note
Progress Note Update
Discussed code status with the patient this AM and then had another discussion with the patient and his this afternoon. We talked about his low platelet count and his low hemoglobin, but in particular that if he were to suffer a cardiac
arrest that doing CPR in this situation would have a high chance of leading to life-threatening bleeding and would likely prolong suffering. He thought about this and discussed with his , and they have agreed to be DNR/DNI but to continue full
medical management for now. Family members are coming from areas around the country to come here to see Abner, and should be here by this weekend. I answered all the and patient's questions and emotional support was provided.
[2024-07-02 14:31] LABS: Folate > 20.0 ng/ml (2.76-20); Vitamin B12 > 1000 pg/ml (239-931)
--- NOTE | 2024-07-02 14:35 | CM ---
CM following re: discharge planning.
Reviewed pt's chart, met with pt and pty's spouse at bedside.
Pt is a 69 year old male, admitted with primary dx of Anemia. PMH includes: metastatic pancreatic cancer currently on chemotherapy with progressive disease and extensive liver mets complicated by ascites and anasarca. Per Rounds meeting, pt is
DNR/DNI, family coming from all over the country to meet with the pt.
Pt reports he lives with spouse 2SH, 1 step to enter, has 3supportive children. Pt described himself as independent in all areas [employer]. Pt is aware of his current health condition and pt and his spouse are leaning possible towards hospice. Palliative
care evaluation noted - pt is hospice appropriate.
D/C plan: possible home hospice. Continue supportive care.
CM will follow with discharge plan updates as hospitalization progresses
--- NOTE | 2024-07-02 15:15 | W.PN.HOSP.TC ---
Today's Communication/Plan
-
continue abx
transfuse for hbg < 7
wean vasopressors off as possible
continue other measures
Assessment / Plan
Assessment / Plan
Impression:
This is a 69-year-old with metastatic pancreatic cancer and extensive liver mets complicated by ascites, anasarca here with shock physiology suspect hemorrhagic with or without septic shock.
Sepsis with severe septic shock.
Hypotension not responding to IV fluids and requiring multiple pressors.
Metabolic acidosis.
Acute kidney injury.
DIC
GI bleed
Acute blood loss anemia
Hypernatremia
Hypoalbuminemia
Metastatic to the liver pancreatic carcinoma treated with multiple rounds of chemotherapy
Other conditions:
Type 2 diabetes
Hypertension
Plan:
Critically ill admitted to intensive care unit.
Severe sepsis with septic shock requiring vasopressors.
Hypothermia, hypotension, leukocytosis at presentation
with metastatic pancreatic cancer likely source is intra-abdominal
Blood cultures NTD. ascitic fluid culture negative,
CT chest showing bilateral compression atelectasis
Broad-spectrum antibiotics: Vancomycin/Zosyn
Septic shock with profound hypotension requiring vasopressors.
Got stress dose of hydrocortisone
wean off vasopressors as possible, on vasopressin/Levophed currently
Acute kidney injury suspect prerenal stimuli with severe hypotension and anemia
Creatinine 1.7, BUN 76 on presentation
Bladder scan with PVR of 760 may be interfering by abdominal ascites.
Magana catheter for retention and strict I's and O's.
Transfuse.
Alcohol needed IV fluids.
Vasopressors to keep MAP 55�60
DIC
Coagulopathy
Multifactorial anemia likely from hemolysis/blood loss
Thrombocytopenia
Patient may have DIC from metastatic malignancy/sepsis
Fibrinogen less than 60, requiring FFP transfusion
Platelet Mino of 12, got platelet transfusion
Patient having bright red blood in stool, requiring blood transfusion
Labs somewhat stabilized today with hemoglobin 7.5/platelet 14/fibrinogen 90 and INR improved to 1.8
Type 2 diabetes.
Update hemoglobin A1c
Basal bolus protocol.
If persistently hyperglycemic while on stress dose of corticosteroids, consider transition to insulin drip.
Hold metformin
Essential hypertension.
Hold lisinopril
Metastatic pancreatic carcinoma
Progressive through multiple rounds of chemotherapy.
Known hepatic mets.
Updated imaging including ultrasound/CT scan of the abdomen pending
Oncology/hematology following and help appreciated
Plan is to continue goals of care discussion.
Full code
DVT prophylaxis mechanical
Total Critical Care Time 39 minutes. I was immediately available to the patient and staff. I personally examined, reviewed labs, diagnostic images/reports, interpretations, treatment plans, discussed patient care with other providers and family
or caregivers (if patient is unable to make decisions), entered orders as appropriate and documented the medical record.
Anticipated Discharge: > 48 hours
Subjective/Interval History
-
Date of Service: July 02, 2024
Remains on 2 vasopressors
Reported blood in stool overnight
no other bleeding diathesis
afebrile
Objective Data
-
Labs:
Laboratory Results
07/01/24 07/02/24
04:54 10:07
WBC 3.3 L
Hgb 7.5 L D
Hct 21.8 L
Plt Count 14 L*
PT 23.0 H 21.7 H
INR 2.02 1.84
APTT 52.2 H 46.3 H
Sodium 146 H
Potassium 3.9
Chloride 112 H
Carbon Dioxide 27
BUN 78 H
Creatinine 1.6 H
Glucose 210 H
Calcium 7.8 L
Vital Signs:
Vital Signs
Temp Pulse Resp BP Pulse Ox
97.6 F 83 12 105/69 99
07/02/24 15:07 07/02/24 13:00 07/02/24 13:00 07/02/24 13:00 07/02/24 13:00
I&O
07/01/24 07/02/24 07/03/24
06:59 06:59 06:59
Intake Total 0 / 0 6707.0 / 6858.5 1753.5 / 1753.5
Output Total 1325 / 1355 615 / 615
Balance 0 / 0 5382.0 / 5503.5 1138.5 / 1138.5
Review of Systems
-
Unable to obtain full review of systems at this time due to: Acuity
Physical Exam
-
General: No Apparent Distress
HEENT: Moist Mucous Membranes and Oxygen
Respiratory: Clear to Auscultation
Cardiac: Regular Rhythm and S1/S2; Negative Murmur
GI: Soft, Nontender and Nondistended; Negative Organomegaly
Musculoskeletal: Edema, Right Upper Extrem and Edema, Left Upper Extrem
Skin: Negative Rash
Neuro: Nonfocal/Grossly Intact
--- NOTE | 2024-07-02 16:34 | PTCARENOTE ---
All vasopressors off at this time. at bedside. Family Assessment Worker to bedside to discuss goals of care and plan. Pt now DNR. Platelets X2 ordered, awaiting from [place].
[2024-07-02] MEDS: NOVOLOG FLEXPEN-LOW RESISTANCE 1 UNITS SC (17:32)
[2024-07-02 17:41] LABS: Glucose - Point of Care 181 mg/dl (70-99)
--- NOTE | 2024-07-02 20:00 | PTCARENOTE ---
assessment nurse, pt aaox3, denies pain, SR HR 60s, LAC IV/RSQ port/RDL PICC WNL. Sat 97% on 2LNC. Magana draining adequate amt taras yellow urine. +inc mod amt liquid gelatinous BM- green/yellow color. skin care. repositioned. POC discussed, call mccord
with pt.
[2024-07-02] MEDS: NSS (PRESERVATIVE FREE) 10 ML IV (20:05)
[2024-07-02] MEDS: PROTONIX IV 40 MG IV (20:05)
--- NOTE | 2024-07-02 21:09 | PTCARENOTE ---
PICC drsg oozing blood, VAT at bedside to re-dress.
[2024-07-02 21:32] LABS: Glucose - Point of Care 229 mg/dl (70-99)
[2024-07-02 22:09] LABS: Hematocrit 21.6 % (39.0-52.0); Hemoglobin 7.3 g/dL (13.0-18.0); Mean Corp Hgb Conc. 33.8 g/dL (33.0-37.0); Mean Corpuscular Volume 94.7 fL (80.0-94.0); Mean Platelet Volume 12.5 fL (7.4-10.4); Platelet Count 22 10^3/uL (130-400); Red Blood Cell Count 2.28 10^6/uL (4.70-6.10); Red Cell Dist. Width 19.7 % (11.5-14.5); White Blood Cell Count 2.1 10^3/uL (4.8-10.8)
--- NOTE | 2024-07-02 22:26 | VATNOTE ---
called due to picc dsg bleeding; assessed and no active bleeding from insertion site. However, 1 quik clot applied and redressed per protocol. No jamal needed at this time as a pressure dressing. Candie Argueta updated.
[2024-07-03] VITALS (26 sets, daily range): BP systolic 86–127; BP diastolic 63–90; BMI 30.3
[2024-07-03] MEDS: NOVOLOG FLEXPEN-LOW RESISTANCE 2 UNITS SC (00:12)
[2024-07-03] MEDS: NOVOLOG FLEXPEN 2 UNITS SC ×4 (00:13→16:30)
[2024-07-03] MEDS: ZOSYN 50 IV ×5 (00:13→23:59)
[2024-07-03] MEDS: SOLU-CORTEF 50 MG IV ×5 (00:13→23:58)
[2024-07-03 05:22] LABS: Glucose - Point of Care 161 mg/dl (70-99)
[2024-07-03] MEDS: NOVOLOG FLEXPEN-LOW RESISTANCE 1 UNITS SC (05:22)
[2024-07-03 05:42] LABS: INR 1.77; PT 21.2 Sec (11.4-14.6)
[2024-07-03 05:43] LABS: APTT 46.7 Sec (23.4-35.0)
[2024-07-03 05:54] LABS: Hematocrit 23.6 % (39.0-52.0); Mean Corp Hgb Conc. 33.9 g/dL (33.0-37.0); Mean Corpuscular Hgb 32.5 pg (27.0-31.0); Mean Corpuscular Volume 95.9 fL (80.0-94.0); Mean Platelet Volume 11.2 fL (7.4-10.4); Platelet Count 15 10^3/uL (130-400); Red Blood Cell Count 2.46 10^6/uL (4.70-6.10); Red Cell Dist. Width 19.4 % (11.5-14.5); White Blood Cell Count 1.5 10^3/uL (4.8-10.8)
[2024-07-03 06:02] LABS: Fibrinogen 90 MG/DL (199-459)
[2024-07-03 06:07] LABS: ALT (SGPT) 54 U/L (0-50); AST (SGOT) 98 U/L (17-59); Albumin 2.2 g/dl (3.5-5.0); Alkaline Phosphatase 290 U/L (38-126); Blood Urea Nitrogen 74 mg/dl (9-20); Calcium 7.6 mg/dl (8.4-10.2); Carbon Dioxide 27 mmol/L (22-30); Chloride 112 mmol/L (98-107); Estimated Creatinine Clearance 58 ml/min; Glucose 145 mg/dl (70-99); Magnesium 2.2 mg/dl (1.6-2.3); Phosphorus 5.2 mg/dl (2.5-4.5); Sodium 148 mmol/L (135-145); Total Bilirubin 3.7 mg/dl (0.2-1.3); Total Protein 4.7 g/dl (6.3-8.2); eGFR > 60.00
[2024-07-03] MEDS: KCL 100 IV ×2 (07:35→19:35)
[2024-07-03] MEDS: PROTONIX IV 40 MG IV ×2 (07:36→19:45)
[2024-07-03] MEDS: NSS (PRESERVATIVE FREE) 10 ML IV ×2 (07:36→19:45)
--- NOTE | 2024-07-03 07:54 | W.PN.INTV ---
Today's Communication / Plan
Recommendations
Awaiting home hospice on Saturday
If he deteriorates prior to that time then he will be transition to comfort care here in the hospital
Additional family members come to the hospital this weekend and he is looking forward to seeing his brother who he has not seen in a couple years
Continue to TRX platelets to try to raise to >20�30k at least as his abdomen is getting more distended & he could use a paracentesis prior to going home, and possibly even a peritoneal ASEPT catheter
Pain control
Off vasopressors since the afternoon of 07/02
Keep MAP >65
Aspiration precautions
Regular diet is okay but needs to monitor blood glucose levels
Start Lantus tomorrow and give NPH today
Goal BG >100 and <180
Continue ICU level care considering he has significant thrombocytopenia with high risk for spontaneous intracerebral hemorrhage, and although he is DNR/DNI he is still interested in continuing full medical management
Extremely guarded prognosis
Assessment
-
Impression:
#Circulatory shock which is multifactorial due to significant anemia in the setting of significantly low oncotic pressure from liver disease secondary to metastatic pancreatic cancer and possibly sepsis - shock state now resolved
#Acute on chronic anemia with suspected upper GI bleed and bone marrow suppression - more likely the latter
#Leukocytosis with concern for sepsis (unknown source currently)
#Coagulopathy with elevated INR (likely due to pancreatic cancer with mets to liver)
#Hypernatremia likely due to poor PO intake with free water deficit 2.7 L on admission
#RONNIE with metabolic acidosis with increased anion gap
#Transaminitis with hyperbilirubinemia and hypoalbuminemia
#Portal HTN due to metastatic liver disease and also portal vein thrombosis
#Right lower extremity distal DVT (occlusive thrombus in the right peroneal vein found on 07/01/2024 vascular US)
#Metastatic pancreatic cancer on chemotherapy (follows Dr. De Los Santos)
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
chest/abdomen/pelvis from 06/08/2024)
#Mild DANNI (HSAT from 09/2015 showed AHI 11) previously Tx with auto-CPAP with Hx of non-compliance, niki after his Dx of metastatic pancreatic cancer
#History of rosacea
#History of DM type II
Plan:
- Patient was found to be severely anemic with Hb 5.2 on admission and has heme positive stools
- He reports that he has been having blood in his stool and darker-colored urine since he started his second round of chemotherapy this past March 2024
- On 07/02, I changed PPI drip to PPI 40 mg IV q12hr; GI consulted with no plans to perform endoscopy, recommend goals of care discussion
- Consider octreotide gtt given he has portal hypertension due to metastatic pancreatic disease with varicosities seen within the splenic hilum on CT abdomen/pelvis from 06/08/2024 although there was hepatopetal flow in the right and left portal
veins from abdominal Doppler US from 07/01 - no role for octreotide gtt per GI
- Maintain large-bore IV x 2
- Hold antihypertensives and monitor HR + MAP (goal >65)
- Serial CBC to keep H&H >7 g/dL, platelets >10-20k (ideally want >50k but not sure this is realistic) and INR<1.8. Last INR was 1.77 this AM --> given that he has PVT and RLE DVT, would be careful giving too much reversal of his INR status,
although he was given PO vitamin K 5 mg on 07/02 per hematology/oncology
- Unfortunately unable to anticoagulate fully given the extremely high risk of worsening anemia + risk of life-threatening bleeding
- He is currently not having any other bleeding other than his baseline maroon-colored stool. This is why I believe he is having a bone marrow suppression possibly from his chemotherapy or the cancer itself, and fluorouracil has been implicated in
drug-induced immune thrombocytopenia -spoke with oncology today with Dr. Werner and she believes his low blood counts are due to recent chemo
- Please obtain CBC with diff daily to monitor his neutropenia, which is mild as of today
- ANC is 1185 consistent with mild neutropenia.
- Patient is nontoxic-appearing, although with the WBC initially of 20.8, we empirically covered for infection while evaluating for source - he is now mildly neutropenic as of 07/03
- There is a possible lower lobe pneumonia with bibasilar consolidations with air bronchograms, however I think he has atelectasis due to hypoventilation in the setting of pleural effusions
- Chest US performed on 07/02/2024 showing small right-sided effusion and small�moderate left-sided effusion - both not significant and appear to be simple hypoechoic fluid - highly doubt they are parapneumonic based on appearance on chest US, which
i personally reviewed
- I highly doubt he has an empyema given CT chest findings that show his effusion is free flowing, not loculated, no evidence of pleural thickening and there is fluid within the left minor fissure
- Underwent paracentesis on 07/01, removing 7100 cc of fluid that was negative for SBP; SAAG is likely elevated (peritoneal fluid albumin level is reported as <1, so unclear if this is 0.5 or greater)
- Follow up cytopathology from paracentesis
- UA shows many bacteria but negative for nitrites or leukocyte esterase or urine WBC. Low suspicion for UTI. Follow-up urine culture which shows NGTD
- Continue empiric antibiotics for now with Zosyn; IV vancomycin stopped due to MRSA swab negative
- trend WBC and monitor temperature
- Maintain MAP >65
- Now off all pressors since 07/02 in afternoon
- Continue with hydrocortisone 50 mg IV q6hr x 3 days total then start to wean as tolerated from there
- Given 3 doses of albumin 25 g 25% on 07/01/2024, which seemingly improved his blood pressure as his levo requirements markedly improved
- Transfusions should also help his MAP due to increasing colloid pressure
- TSH high with normal free T4, suggesting subclinical hypothyroidism; if he survives this hospitalization can recheck TFTs in 4-6 weeks
- Maintain normothermia
- Trend LFTs + T and D bili
- Bicarbonate drip stopped on 07/02 as pH 7.37 on blood gas and serum bicarbonate level was 27 on 07/02
- Occasionally trend VBG to assess pH and pCO2 are stable
- Trend sNa levels and trend sCr, UOP and strict I/O
- Start D5W given rising serum Na
- Magana for strict I/O
- Renally dose all meds/Abx
- Maintain SpO2 >90-94% with supplemental O2 if needed (on room air as of 07/03)
- Continue aspiration precautions
- Keep HOB >30-45�
- prn nebulized bronchodilators - not currently bronchospastic
- Encourage incentive spirometer use 10x per hour for at least 4 hrs a day
- He is refusing CPAP with sleep as he has not been using it for many months now; he reports that he has lost significant amount of weight and he no longer feels the same symptoms he had previously that were concerning for DANNI
- Replete electrolytes with K>4, Mg>2
- Maintain euglycemia with goal BG 140-180; A1C: 5.3 from 07/02/2024
- DVT ppx: SCDs
- Poor prognosis
- GOC discussion (07/01/2024): I discussed code status with him in front of his , and he wishes to remain full code for now, saying 'I don't want to give up that easily.'
- Repeat discussion (07/02): Given his continued thrombocytopenia now with low Hb and low WBC, I explained that if his heart were to stop and CPR ensued that he would have severe bleeding as a result of the CPR and other invasive interventions that
may occur, with a low chance of a meaningful recovery. Given his pancreatic cancer and now with multiorgan failure, I highly recommend that we change code status to DNR/DNI. He did not disagree with me but he wanted to speak to his first.
This will be an ongoing discussion.
On 07/02, I discussed code status again with the patient and his (see separate update note from that day), and patient was made DNR/DNI but with full medical management otherwise. Today (07/03), oncology spoke to the patient and given that
chemotherapy is not going to be offered again unless he has a marked improvement in his functional status, he is now awaiting to go home on hospice. If he deteriorates further then he will be transitioned to comfort care here in the hospital; and
only if he has high amount of needs will he be a GIP candidate. I spoke to the family in conjunction with the hospice nurse, Nadine, and all questions were answered. The patient and the family agree that Abner will go home on hospice this
upcoming Saturday (07/06/2024)
Continue ICU level care for this critically ill patient.
Critical care statement: A total of 42 minutes of critical care time was provided for this patient today. This includes management of unstable vital signs, evaluation of the patient at bedside, reviewing the patient's pertinent medical records
including radiographs, microbiology, laboratory evaluations, and discussion with primary team, consultants, pharmacy, nutrition, physical therapy, case management, charge nurse, critical care nursing, and respiratory therapy.
Data:
Chest ultrasound (bilateral) � 07/02/2024: Bilateral pleural effusions are noted - small right-sided pleural effusion and small to moderate left-sided pleural effusion.
CXR 07/01/2024: No acute cardiopulmonary process.
CT chest/abdomen/pelvis without contrast 07/01/2024:
There are bibasilar consolidations with air bronchograms concerning for bilateral lower lobe pneumonia. There are small bilateral effusions, likely parapneumonic effusions.
Extensive hepatic metastatic disease, incompletely evaluated although appears generally slightly increased from prior. There is a mass in the pancreatic head consistent with known malignancy.
Diffusely hypoattenuating mediastinal blood pool which likely represents anemia.
Small volume ascites.
Moderately distended gallbladder with biliary duct dilation, overall similar to prior and likely sequelae of the known pancreatic head mass.
Bilateral lower extremity duplex US 07/01/2024: Occlusive thrombus in the right peroneal vein.
Abd doppler US 07/01/2024:
Distended main portal vein with thrombus. No collaterals/cavernous transformation identified. However, blood flow is detected within the right and left portal veins, with hepatopedal flow.
Extensive hepatic nodularity relating to known hepatic metastatic disease.
Biliary sludge. No gallstones.
Distended common bile duct, 17 mm.
Ascites
Subjective Dataa
Subjective Data
Date of Service:
Date of Service: July 03, 2024
Chief Complaint: Liner Checker Follow Up
Subjective:
Pt seen and evaluated this AM. BP 86/66 this AM, and he has been off levo since yesterday afternoon. HR 69 and SpO2 99% on 2L/min. He is more awake today. I spoke with the patient's daughter, Gabriella, and son, Asher, in the presence of the
hospice nurse and the . Patient is interested in going home after this weekend as he wants to see additional family members, especially his brother who he has not seen in a couple years. He is currently not bleeding. Denies NAVARRETE, SOB, chest
pain, fevers or chills. He does say that his abdomen is more distended.
Review of Systems
General: Other (Negative unless mentioned above)
Objective Data
Data Reviewed
Vital Signs / I&O / Oxygen:
Vital Signs
Temp Pulse Resp BP Pulse Ox
97.1 F 65 9 95/68 99
07/03/24 08:59 07/03/24 09:00 07/03/24 09:00 07/03/24 08:59 07/03/24 09:00
Intake and Output
07/02/24 07/03/24 07/04/24
06:59 06:59 06:59
Intake Total 6707.0 / 6858.5 2865.5 / 2865.5 402 / 402
Output Total 1325 / 1355 1565 / 1565 230 / 230
Balance 5382.0 / 5503.5 1300.5 / 1300.5 172 / 172
SaO2 99
Nasal Cannula flow liters per 2
minute
Physical Exam
General: Respiratory Distress (negative), Comfortable, Pain (Abdomen is becoming more distended and uncomfortable with pain), Chills (negative) and Sweats (negative)
HEENT: Normocephalic and Other (Scleral icterus bilaterally)
Cardiovascular: S1-S2, Regular Rhythm and Peripheral Edema (+2 lower extremity pitting edema bilaterally)
Respiratory: Wheeze (negative), Crackles (Bilateral), Rhonchi (negative), Non-Labored Respirations, Stridor (negative) and Other (Diminished breath sounds bilaterally)
GI: Soft, Distended (Positive fluid wave), Non Tender and Normal Bowel Sounds
Neurology: AO x 3 and Tremors (negative)
Skin: Warm, Dry and Jaundice
Labs/Micro/Reports
Lab Data
07/03/24 05:15
07/03/24 05:15
Laboratory Results
07/02/24 07/03/24
10:07 05:15
PT 21.7 H 21.2 H
INR 1.84 1.77
APTT 46.3 H 46.7 H
Microbiology
07/01/24 07:03 Blood/Venous Blood Culture - Preliminary
No Growth in 48 hours- Final report to follow
07/01/24 16:21 Peritoneal Fluid Body Fluid Culture - Preliminary
No Growth After 18-24 Hours
07/01/24 16:21 Peritoneal Fluid Gram Stain - Preliminary
07/02/24 10:07 Nose Nasal Screen MRSA (PCR) - Final
MRSA not detected - performed by PCR methodology.
07/01/24 08:59 Blood/Venous Blood Culture - Preliminary
No Growth in 24 hours- Final report to follow
[2024-07-03 08:14] LABS: Absolute Neutrophils -Man Diff 1.1 10^3/uL (1.4-6.5); Band Neutrophils 1 % (0-3); Lymphocytes 12 % (20-51); Metamyelocytes 2 % (-); Monocytes 6 % (2-9); Myelocytes 1 % (-); Normal RBC Morphology No; Platelets Checked Yes; Segmented Neutrophils 78 % (42-75)
[2024-07-03 08:15] LABS: Anisocytosis 1+; Target Cells Slight; Total Cells Counted 100
--- NOTE | 2024-07-03 08:33 | PTCARENOTE ---
geological technician, pt aaox3, denies pain, SR HR 60s, LAC IV/RSQ port/RDL PICC WNL. Sat 97% on 2LNC. Magana draining adequate amt taras yellow urine. +inc mod amt liquid gelatinous BM- green/yellow color. Platelets infusing. skin care. repositioned. POC
discussed, call mccord with pt.
--- NOTE | 2024-07-03 09:17 | W.PN.HOSP.TC ---
Today's Communication/Plan
-
continue wean off pressors
continue zosyn
encourage oral liquid intake
Assessment / Plan
Assessment / Plan
Impression:
This is a 69-year-old with metastatic pancreatic cancer and extensive liver mets complicated by ascites, anasarca here with shock physiology suspect hemorrhagic with or without septic shock.
Sepsis with severe septic shock.
Hypotension not responding to IV fluids and requiring multiple pressors.
Metabolic acidosis.
Acute kidney injury.
DIC
GI bleed
Acute blood loss anemia
Hypernatremia
Hypoalbuminemia
Metastatic to the liver pancreatic carcinoma treated with multiple rounds of chemotherapy
Other conditions:
Type 2 diabetes
Hypertension
Plan:
Critically ill admitted to intensive care unit.
Severe sepsis with septic shock requiring vasopressors.
Hypothermia, hypotension, leukocytosis at presentation
with metastatic pancreatic cancer likely source is intra-abdominal
Blood cultures NTD. ascitic fluid culture negative,
CT chest showing bilateral compression atelectasis
Maintain on Zosyn, discontinued vancomycin
Septic shock with profound hypotension requiring vasopressors.
Got stress dose of hydrocortisone
Currently on small dose of Levophed, being weaned off
Acute kidney injury suspect prerenal stimuli with severe hypotension and anemia - resolved
Creatinine 1.7, BUN 76 on presentation
Bladder scan with PVR of 760 may be interfering by abdominal ascites.
Magana catheter for retention and strict I's and O's.
Transfuse.
Alcohol needed IV fluids.
Vasopressors to keep MAP 55�60
DIC - Improved
Coagulopathy
Multifactorial anemia likely from hemolysis/blood loss
Thrombocytopenia
Patient may have DIC from metastatic malignancy/sepsis
Fibrinogen less than 60, requiring FFP transfusion
Platelet remains suppressed, getting one unit plt today, no bleeding diathesis.
Patient having bright red blood in stool, requiring blood transfusion
Coagulopathy/DIC lab with improved today. Continue monitoring
Type 2 diabetes.
A1c of 6.5
Basal bolus protocol.
If persistently hyperglycemic while on stress dose of corticosteroids, consider transition to insulin drip.
Hold metformin
Essential hypertension.
Hold lisinopril
Metastatic pancreatic carcinoma
Progressive through multiple rounds of chemotherapy.
Known hepatic mets.
Updated imaging including ultrasound/CT scan of the abdomen pending
Oncology/hematology following and help appreciated
Plan is to continue goals of care discussion.
Full code
DVT prophylaxis mechanical
Total Critical Care Time 42 minutes. I was immediately available to the patient and staff. I personally examined, reviewed labs, diagnostic images/reports, interpretations, treatment plans, discussed patient care with other providers and family
or caregivers (if patient is unable to make decisions), entered orders as appropriate and documented the medical record.
Anticipated Discharge: > 48 hours
Subjective/Interval History
-
Date of Service: July 03, 2024
Remains on small dose of Levophed
Patient much more alert and communicative today
Some abdominal discomfort denies of having any nausea or vomiting
Stool was brown color overnight
Objective Data
-
Labs:
Laboratory Results
07/02/24 07/03/24
21:45 05:15
WBC 2.1 L* 1.5 L*
Hgb 7.3 L 8.0 L
Hct 21.6 L 23.6 L
Plt Count 22 L* D 15 L* D
PT 21.2 H
INR 1.77
APTT 46.7 H
Sodium 148 H
Potassium 3.0 L
Chloride 112 H
Carbon Dioxide 27
BUN 74 H
Creatinine 1.3
Glucose 145 H
Calcium 7.6 L
Total Bilirubin 3.7 H
AST 98 H
ALT 54 H
Alkaline Phosphatase 290 H
Vital Signs:
Vital Signs
Temp Pulse Resp BP Pulse Ox
97.1 F 65 9 95/68 99
07/03/24 08:59 07/03/24 09:00 07/03/24 09:00 07/03/24 08:59 07/03/24 09:00
I&O
07/02/24 07/03/24 07/04/24
06:59 06:59 06:59
Intake Total 6707.0 / 6858.5 2865.5 / 2865.5 402 / 402
Output Total 1325 / 1355 1565 / 1565 230 / 230
Balance 5382.0 / 5503.5 1300.5 / 1300.5 172 / 172
Review of Systems
-
Respiratory: Reports No Symptoms
Cardiac: Reports No Symptoms
Abdomen/GI: Reports Abdominal Pain; Denies Nausea or Vomiting
Physical Exam
-
General: No Apparent Distress
HEENT: Moist Mucous Membranes and Oxygen
Respiratory: Clear to Auscultation
Cardiac: Regular Rhythm and S1/S2; Negative Murmur
GI: Soft, Nontender and Distended; Negative Organomegaly
Musculoskeletal: Edema, Right Upper Extrem and Edema, Left Upper Extrem
Skin: Negative Rash
Neuro: Awake, Alert, Oriented and Nonfocal/Grossly Intact
--- NOTE | 2024-07-03 11:03 | W.PN.ONC2 ---
Today's Communication / Plan
-
Hospice consult now.
Continue current level of care until pt has a chance to visit with family members arriving tomorrow.
Impression
Impression
Metastatic pancreatic cancer, progressive through multiple lines of therapy
Grade IV chemo-associated cytopenias following FOLFIRI (Onivyde) on 06/23, Neulasta 06/26
Acute on chronic GIB
Acute thrombus in R peroneal and portal veins
Coagulopathy
Pneumonia
RONNIE
Sepsis requiring pressor support, now off but with SBP 86
Symptomatic ascites
Plan
Plan
Over the course of 40 minutes we discussed goals of care.
With GIB + cytopenias + coagulopathy + cytopenias, he is at the point of medical futility in the short term.
He has no options remaining for treatment of met pancreatic cancer.
Discussed that blood clots, infections, failure to thrive, organ failure can all be causes of in end-stage cancer and if it's not one, it's the other.
Family are coming to see pt tomorrow but after that, they are prepared to take pt home on hospice.
Continue current level of care for now while awaiting family but put plans in place for home hospice.
Subjective/Objective
Chief Complaint
Heme/Onc Follow up of metastatic pancreatic cancer
Subjective
Off pressors and O2, awake, somewhat alert.
Vital Signs:
Vital Signs
Temp Pulse Resp BP Pulse Ox
97.1 F 65 9 95/68 99
07/03/24 08:59 07/03/24 09:00 07/03/24 09:00 07/03/24 08:59 07/03/24 09:00
Lab Results:
Laboratory Data
WBC 1.5 10^3/uL (4.8-10.8) L* 07/03/24 05:15
Hgb 8.0 g/dL (13.0-18.0) L 07/03/24 05:15
Plt Count 15 10^3/uL (130-400) L* D 07/03/24 05:15
PT 21.2 Sec (11.4-14.6) H 07/03/24 05:15
INR 1.77 07/03/24 05:15
APTT 46.7 Sec (23.4-35.0) H 07/03/24 05:15
eGFR > 60.00 07/03/24 05:15
Physical Exam
HEENT: Jaundice
Cardiology: Normal Sinus Rhythm, S1 and S2
Pulmonary: Other (decreased)
GI: Distended
Extremities: Edema
Neuro: Non Focal
Review of Systems
Review of Systems
Constitutional: Reports Fatigue; Denies Fever
Head: Denies Sore Throat or Hearing Loss
Respiratory: Denies Dyspnea or Cough
Cardiovascular: Denies Chest Pain or Palpitations
Gastrointestinal: Reports Diarrhea; Denies Nausea/Vomiting
Genitourinary: Denies Hematuria
Skin: Denies Rash or Pruritis
Neurological: Denies Headache or Numbness
Psychiatric: Denies Depression or Insomnia
Hem/Lymphatic: Reports Easy Bruising; Denies Night Sweats
[2024-07-03] MEDS: KCL ELIXIR 40 MEQ PO (11:11)
--- NOTE | 2024-07-03 11:28 | PTCARENOTE ---
Oncology to bedside for lengthy discussion of goals of care. MD requesting hospice consult today. automotive diagnostic technician notified.
[2024-07-03] MEDS: NOVOLOG FLEXPEN-MODERATE RESISTANCE 3 UNITS SC ×2 (12:02→16:30)
[2024-07-03 12:12] LABS: Glucose - Point of Care 245 mg/dl (70-99)
--- NOTE | 2024-07-03 12:42 | HOSPNOTE ---
Met with family and patient and the plan is to admit at home on Thursday 07/06 with hospice. The patient will need a pleurex drain placed prior to discharge and will be done on Saturday in the am. Equipment was ordered and will be delivered on Saturday
morning and the patient will be sent home via ambulance on Saturday at 1pm. OOH DNR needed on chart and transport needs to be scheduled. Attending and CM made aware of plan. All questions were answered. Once patient is home we will sign patient onto
hospice services.
--- NOTE | 2024-07-03 14:27 | CM ---
CM following re: discharge planning.
Reviewed pt's chart, met with pt.
Hospice consult noted. Both pt and his spouse preferred hospice. A referral to hospice made.
Per brick off bearer, pt will be accepted for home hospice on Saturday.
D/C plan: home with hospice on Saturday07/06/24.
CM will follow with discharge plan updates as hospitalization progresses
--- NOTE | 2024-07-03 15:14 | PN.CDI ---
CDI
- -
CDI:
Physician Documentation Request
Admit Date: 07/01/24 07:55
Dear Doctor Amor,
Patient admitted with sepsis and shock, met pancreatic liver pancreatic carcinoma, Poss DIC
07/01 Peripheral US showed occlusive thrombus in right peroneal vein.
07/02 broadband technician report this DVT in their progress note.
Can you please clarify which of the following accurately represents the acuity of the right peroneal vein thrombus:
____ Acute
Acute on Chronic
Chronic
____ Other
Use of terms such as suspected, likely, concern for, or probable (associated with a specific diagnosis that is being evaluated, monitored, or treated as if it exists) are acceptable and can be coded in the inpatient setting, when documented at the
time of discharge.
Thank you,
Nano Banda RN, BSN
CDI Specialist
tiger text
Please use your independent medical judgment in providing your response.
[2024-07-03 16:30] LABS: Glucose - Point of Care 224 mg/dl (70-99)
[2024-07-03] MEDS: NOVOLIN N vial 0.08 UNITS SC (16:30)
--- NOTE | 2024-07-03 17:00 | VATNOTE ---
VAT: Right picc continues to bleed with dressing changes due to low platelets. . spoke with primary rn about the needs for picc. will leave picc in until meeting with family. Will assess the needs and will follow up.
--- NOTE | 2024-07-03 17:13 | PTCARENOTE ---
No obvious UOP since stephens removal. Bladder scan 557cc. Pt encouraged to void.
[2024-07-03 18:14] LABS: ALT (SGPT) 52 U/L (0-50); AST (SGOT) 94 U/L (17-59); Albumin 2.4 g/dl (3.5-5.0); Alkaline Phosphatase 290 U/L (38-126); Blood Urea Nitrogen 67 mg/dl (9-20); Calcium 7.9 mg/dl (8.4-10.2); Carbon Dioxide 24 mmol/L (22-30); Chloride 109 mmol/L (98-107); Estimated Creatinine Clearance 58 ml/min; Glucose 219 mg/dl (70-99); Potassium 3.5 mmol/L (3.5-5.1); Sodium 143 mmol/L (135-145); Total Bilirubin 4.3 mg/dl (0.2-1.3); Total Protein 4.9 g/dl (6.3-8.2); eGFR > 60.00
--- NOTE | 2024-07-03 18:20 | PTCARENOTE ---
Pt able to void dark yellow urine 225cc.
--- NOTE | 2024-07-03 21:16 | PTCARENOTE ---
Handoff report received from off going RN. Pt's AAOX4 and able to make his needs known. MAEx4 with some weakness. Plan of care for the shift reviewed with the patient. NSR on the monitor. Palpable pulses. Pt's with +3 pitting edema to bilateral
lower extremities, + 2 anasarca, and ascites. Crackles heard with auscultation. SpO2 at 95% on room air. Abdomen is round, mildly firm, with ascites. The patient stated that he can be incontinent of stool as he is generally not aware when he has to
have a BM. Discussed bladder scan protocol with the patient if he is unable to void, and the possible need for a stephens catheter. The patient verbalized being aware of bladder scan/stephens cath plan from prior shift. SCDs are intact. Protective foams
are intact. DTI to sacrum. Right PICC line and 20g on left AC, and RSQ port are patent. Family is at the bedside. Call mccord and personal belonigns are within reach.
[2024-07-03 21:59] LABS: Glucose - Point of Care 195 mg/dl (70-99)
[2024-07-04] VITALS (29 sets, daily range): BP systolic 89–115; BP diastolic 64–90; BMI 31.3
--- NOTE | 2024-07-04 00:01 | PTCARENOTE ---
Patient reassessed. Sinus angely to sinus rhythm on the monitor. RR 11 with even chest rise. Arousable to verbal commands. SpO2 at 96% on room air. No changes from the previous assessment.
--- NOTE | 2024-07-04 04:40 | PTCARENOTE ---
Patient reassessed. No changes. the patient is watching television.
[2024-07-04 04:41] LABS: INR 1.63; PT 19.5 Sec (11.4-14.6)
[2024-07-04 04:47] LABS: Blood Urea Nitrogen 63 mg/dl (9-20); Calcium 7.9 mg/dl (8.4-10.2); Carbon Dioxide 24 mmol/L (22-30); Chloride 110 mmol/L (98-107); Estimated Creatinine Clearance 58 ml/min; Glucose 159 mg/dl (70-99); Magnesium 2.1 mg/dl (1.6-2.3); Potassium 3.5 mmol/L (3.5-5.1); Sodium 145 mmol/L (135-145); eGFR > 60.00
[2024-07-04 04:53] LABS: Hematocrit 25.4 % (39.0-52.0); Hemoglobin 8.5 g/dL (13.0-18.0); Mean Corp Hgb Conc. 33.5 g/dL (33.0-37.0); Mean Corpuscular Hgb 32.6 pg (27.0-31.0); Mean Corpuscular Volume 97.3 fL (80.0-94.0); Platelet Count 13 10^3/uL (130-400); Red Blood Cell Count 2.61 10^6/uL (4.70-6.10); Red Cell Dist. Width 19.6 % (11.5-14.5); White Blood Cell Count 0.8 10^3/uL (4.8-10.8)
[2024-07-04 04:55] LABS: Fibrinogen 83 MG/DL (199-459)
[2024-07-04] MEDS: ZOSYN 50 IV ×3 (05:58→18:07)
[2024-07-04] MEDS: KCL 100 IV (05:58)
[2024-07-04] MEDS: SOLU-CORTEF 50 MG IV (05:59)
--- NOTE | 2024-07-04 06:23 | PTCARENOTE ---
Labs resulted. EMAIL DESIGNER made aware. Diego hernandez ordered for potassium of 3.5.
[2024-07-04] MEDS: NSS (PRESERVATIVE FREE) 10 ML IV ×2 (07:44→20:17)
[2024-07-04] MEDS: PROTONIX IV 40 MG IV ×2 (07:44→20:16)
[2024-07-04] MEDS: LANTUS 0.08 UNITS SC (08:00)
[2024-07-04] MEDS: NOVOLOG FLEXPEN-MODERATE RESISTANCE 1 UNITS SC ×3 (08:00→17:14)
[2024-07-04] MEDS: NOVOLOG FLEXPEN 2 UNITS SC ×3 (08:01→17:14)
[2024-07-04 08:11] LABS: Glucose - Point of Care 155 mg/dl (70-99)
--- NOTE | 2024-07-04 09:18 | W.PN.HOSP.TC ---
Today's Communication/Plan
-
transfer to IMU
Continue current care
Home hospice transition on Saturday
Assessment / Plan
Assessment / Plan
Impression:
This is a 69-year-old with metastatic pancreatic cancer and extensive liver mets complicated by ascites, anasarca here with shock physiology suspect hemorrhagic with or without septic shock.
Sepsis with severe septic shock.
Hypotension not responding to IV fluids and requiring multiple pressors.
Metabolic acidosis.
Acute kidney injury.
DIC
GI bleed
Acute blood loss anemia
Hypernatremia
Hypoalbuminemia
Metastatic to the liver pancreatic carcinoma treated with multiple rounds of chemotherapy
Other conditions:
Type 2 diabetes
Hypertension
Plan:
Critically ill admitted to intensive care unit.
Severe sepsis with septic shock requiring vasopressors.
Hypothermia, hypotension, leukocytosis at presentation
with metastatic pancreatic cancer likely source is intra-abdominal
Blood cultures NTD. ascitic fluid culture negative,
CT chest showing bilateral compression atelectasis
Maintain on Zosyn, discontinued vancomycin
Septic shock with profound hypotension requiring vasopressors.
Got stress dose of hydrocortisone
Currently on small dose of Levophed, being weaned off
Acute kidney injury suspect prerenal stimuli with severe hypotension and anemia - resolved
Creatinine 1.7, BUN 76 on presentation
Magana cath to be replaced for hospice care.
Alcohol needed IV fluids.
Vasopressors to keep MAP 55�60
DIC - Improved
Coagulopathy
Multifactorial anemia likely from hemolysis/blood loss
Thrombocytopenia
Patient may have DIC from metastatic malignancy/sepsis
Fibrinogen less than 60, requiring FFP transfusion
Platelet remains suppressed, getting one unit plt today, no bleeding diathesis.
Patient having bright red blood in stool, requiring blood transfusion
Coagulopathy/DIC lab improved somewhat although remains critical at this time
Type 2 diabetes.
A1c of 6.5
Basal bolus protocol.
If persistently hyperglycemic while on stress dose of corticosteroids, consider transition to insulin drip.
Hold metformin
Essential hypertension.
Hold lisinopril
Metastatic pancreatic carcinoma
Progressive through multiple rounds of chemotherapy.
Known hepatic mets.
Updated imaging including ultrasound/CT scan of the abdomen pending
Oncology/hematology following and help appreciated
Plan is to continue goals of care discussion.
DNR/DNI
DVT prophylaxis mechanical
07/03 patient family agreed for patient to be DNR/DNI after discussion with the beauty director on 07/02. Oncology discussed with patient poor prognosis and no treatment options are left. Patient and family understands this and have agreed for patient
to be taken home on home hospice on Saturday. Patient have certain family numbers visiting from other part of country and flying in to see the patient
Anticipated Discharge: 24 - 48 hours
Subjective/Interval History
-
Date of Service: July 04, 2024
Resting comfortably in bed
No nausea vomiting
Denies of having any diarrhea
Afebrile overnight
Off of vasopressors
Objective Data
-
Labs:
Laboratory Results
07/04/24
04:12
WBC 0.8 L*
Hgb 8.5 L
Hct 25.4 L
Plt Count 13 L*
PT 19.5 H
INR 1.63
APTT 47.0 H
Sodium 145
Potassium 3.5
Chloride 110 H
Carbon Dioxide 24
BUN 63 H
Creatinine 1.3
Glucose 159 H
Calcium 7.9 L
Vital Signs:
Vital Signs
Temp Pulse Resp BP Pulse Ox
97.2 F 73 14 113/81 98
07/04/24 08:42 07/04/24 08:42 07/04/24 08:42 07/04/24 08:42 07/04/24 08:08
I&O
07/03/24 07/04/24 07/05/24
06:59 06:59 06:59
Intake Total 2865.5 / 2865.5 842 / 842 355 / 355
Output Total 1565 / 1565 1335 / 1335
Balance 1300.5 / 1300.5 -493 / -493 355 / 355
Review of Systems
-
Respiratory: Reports No Symptoms
Cardiac: Reports No Symptoms
Abdomen/GI: Reports Abdominal Pain; Denies Nausea or Vomiting
Physical Exam
-
General: No Apparent Distress
HEENT: Moist Mucous Membranes and Oxygen
Respiratory: Clear to Auscultation
Cardiac: Regular Rhythm and S1/S2; Negative Murmur
GI: Soft, Nontender and Nondistended; Negative Organomegaly
Musculoskeletal: Edema, Right Upper Extrem and Edema, Left Upper Extrem
Skin: Negative Rash
Neuro: Awake, Alert, Oriented and Nonfocal/Grossly Intact
--- NOTE | 2024-07-04 11:28 | PTCARENOTE ---
Pt received in bed @ 0700. AAOx3. Generalized weakness. Denying pain. SaO2 98%. Crackles auscultated at bases and expiratory wheeze anteriorly. Sinus rhythm/Sinus angely on quality assurance monitor chassis. HR 50s - 70s. +3 pitting LE edema. MAP remains > 65
without pressors. Wound care as documented. Abdomen round, distended, tympanic. Pt tolerating PO intake. Loose formed mena stool. Voided 350ml taras urine into urinal. (R) DL PICC and accessed (R) subclavian subcutaneous port. CHG cloth bath
performed with shampoo cap. Linens changed. Pt downgraded to IMU level of care.
[2024-07-04 11:50] LABS: Glucose - Point of Care 182 mg/dl (70-99)
--- NOTE | 2024-07-04 13:06 | PTCARENOTE ---
Platelets infused this AM without apparent transfusion reaction.
[2024-07-04 17:10] LABS: Glucose - Point of Care 152 mg/dl (70-99)
--- NOTE | 2024-07-04 20:27 | PTCARENOTE ---
Patient received in bed AAOx4 and able to make his needs known. Did not verbalize pain at this time. Plan of care for the shift reviewed with the patient. Family at the bedside. Questions answered. NSR on the monitor. + 3 pitting edema to bilateral
lower extremities. SpO2 at 97% on room air. crackles to bases on auscultation. Abdomen is distended and ascites. Scds in use. Pt's assists with turns ans repositioning. Right PICC and right SQ port are wdl. safety measures maintained. Call mccord and
personal belongings are within reach.
[2024-07-04 21:26] LABS: Glucose - Point of Care 179 mg/dl (70-99)
[2024-07-05] VITALS (22 sets, daily range): BP systolic 90–120; BP diastolic 55–105; PULSE 77; O2SAT 98; BMI 31.7
[2024-07-05] MEDS: ZOSYN 50 IV ×5 (00:22→23:50)
--- NOTE | 2024-07-05 00:25 | PTCARENOTE ---
No changes with reassessment. Pt's awake and watching television. VSS.
--- NOTE | 2024-07-05 04:07 | PTCARENOTE ---
No changes from the previous assessment.
[2024-07-05 04:27] LABS: Hematocrit 24.1 % (39.0-52.0); Hemoglobin 8.3 g/dL (13.0-18.0); Mean Corp Hgb Conc. 34.4 g/dL (33.0-37.0); Mean Corpuscular Hgb 33.7 pg (27.0-31.0); Mean Platelet Volume 12.8 fL (7.4-10.4); Platelet Count 16 10^3/uL (130-400); Red Blood Cell Count 2.46 10^6/uL (4.70-6.10); Red Cell Dist. Width 19.5 % (11.5-14.5); White Blood Cell Count 0.6 10^3/uL (4.8-10.8)
[2024-07-05 04:34] LABS: Blood Urea Nitrogen 55 mg/dl (9-20); Calcium 7.8 mg/dl (8.4-10.2); Carbon Dioxide 27 mmol/L (22-30); Chloride 111 mmol/L (98-107); Estimated Creatinine Clearance 70 ml/min; Glucose 116 mg/dl (70-99); Potassium 3.3 mmol/L (3.5-5.1); Sodium 144 mmol/L (135-145); eGFR > 60.00
[2024-07-05 04:36] LABS: INR 1.56; PT 18.9 Sec (11.4-14.6)
[2024-07-05 04:48] LABS: Fibrinogen 78 MG/DL (199-459)
--- NOTE | 2024-07-05 05:59 | PTCARENOTE ---
0522: Patient's labs resulted. Potassium 3.3, calcium 7.8. Gretchen Brock NP made aware.
--- NOTE | 2024-07-05 06:14 | PTCARENOTE ---
Kcl rider 40 meq IV ordered for potassium of 3.3.
[2024-07-05] MEDS: KCL 270 MEQ IV (06:22)
[2024-07-05] MEDS: NOVOLOG FLEXPEN-MODERATE RESISTANCE SC ×2 (07:28→11:35)
[2024-07-05] MEDS: NSS (PRESERVATIVE FREE) 10 ML IV ×2 (07:29→20:15)
[2024-07-05] MEDS: PROTONIX IV 40 MG IV ×2 (07:29→20:15)
[2024-07-05] MEDS: NOVOLOG FLEXPEN 2 UNITS SC ×3 (07:29→17:21)
[2024-07-05] MEDS: LANTUS 0.08 UNITS SC (07:29)
[2024-07-05 07:39] LABS: Glucose - Point of Care 104 mg/dl (70-99)
--- NOTE | 2024-07-05 08:43 | W.PN.HOSP.TC ---
Today's Communication/Plan
-
see note
Assessment / Plan
Assessment / Plan
Impression:
This is a 69-year-old with metastatic pancreatic cancer and extensive liver mets complicated by ascites, anasarca here with shock physiology suspect hemorrhagic with or without septic shock.
Sepsis with severe septic shock.
Hypotension not responding to IV fluids and requiring multiple pressors.
Metabolic acidosis.
Acute kidney injury.
DIC
GI bleed
Acute blood loss anemia
Hypernatremia
Hypoalbuminemia
Metastatic to the liver pancreatic carcinoma treated with multiple rounds of chemotherapy
Ansaraca
Other conditions:
Type 2 diabetes
Hypertension
Plan:
Critically ill admitted to intensive care unit.
Severe sepsis with septic shock requiring vasopressors. resolved shock at this point.
Hypothermia, hypotension, leukocytosis at presentation
with metastatic pancreatic cancer likely source is intra-abdominal
Blood cultures NTD. ascitic fluid culture negative,
CT chest showing bilateral compression atelectasis
Maintain on Zosyn, discontinued vancomycin
Got stress dose of hydrocortisone. now off of it.
Acute kidney injury suspect prerenal stimuli with severe hypotension and anemia - resolved
Creatinine 1.7, BUN 76 on presentation
Magana cath to be replaced for hospice care.
Alcohol needed IV fluids.
continue monitoring renal function for recovery.
DIC - Improved
Coagulopathy
Multifactorial anemia likely from hemolysis/blood loss
Thrombocytopenia
Patient may have DIC from metastatic malignancy/sepsis
Low fibrinogen (<60), thrombocytopenia/elevated INR
Blood in stool has stopped
continue monitoring for now with transfusion was provided prn till hospice decision made.
got total 4 u prbc, 7 u plt, 2 u FFP so far this admit.
Type 2 diabetes.
A1c of 6.5
Basal bolus protocol. possibly can be stopped if patient preferes to avoid un-necessary sticks.
Hold metformin
Essential hypertension.
Hold lisinopril
Metastatic pancreatic carcinoma
Progressive through multiple rounds of chemotherapy.
Known hepatic mets.
Updated imaging including ultrasound/CT scan of the abdomen pending
Oncology/hematology following and help appreciated
Plan is to continue goals of care discussion.
Anasarca
Ascites
Providing 20 mg Lasix dose as renal function improved, blood pressure remains soft limiting higher dosing
May require peritoneal drainage catheter as part of hospice care although with ongoing coagulopathy might be risk, will discuss with onco/irad.
DNR/DNI
DVT prophylaxis mechanical
07/03 patient family agreed for patient to be DNR/DNI after discussion with the forder operator on 07/02. Oncology discussed with patient poor prognosis and no treatment options are left. Patient and family understands this and have agreed for patient
to be taken home on home hospice on Saturday. Patient have certain family numbers visiting from other part of country and flying in to see the patient
07/05 discussed care plan with patient. Patient is hopeful to go home on home hospice. Overall decreased mobility and may require significant assistance, if family able to take [facility] hospice remains appropriate choice. Patient is waiting for
family to visit today and will try working with physical therapy
Total time spent : 52 mins
Anticipated Discharge: 24 - 48 hours
Subjective/Interval History
-
Date of Service: July 05, 2024
Denies of any problems
No abdominal pain/nausea/vomiting
Having good bowel movements
Some abdominal distention questioning about for possible need of repeat paracentesis before discharge
Objective Data
-
Labs:
Laboratory Results
07/05/24
04:02
WBC 0.6 L*
Hgb 8.3 L
Hct 24.1 L
Plt Count 16 L* D
PT 18.9 H
INR 1.56
APTT 43.0 H
Sodium 144
Potassium 3.3 L
Chloride 111 H
Carbon Dioxide 27
BUN 55 H
Creatinine 1.1
Glucose 116 H
Calcium 7.8 L
Vital Signs:
Vital Signs
Temp Pulse Resp BP Pulse Ox
97.6 F 61 11 92/62 99
07/05/24 07:30 07/05/24 06:00 07/05/24 06:00 07/05/24 06:00 07/05/24 05:30
I&O
07/04/24 07/05/24 07/06/24
06:59 06:59 06:59
Intake Total 842 / 842 3765 / 3765
Output Total 1335 / 1335 1750 / 1750
Balance -493 / -493 2014
Review of Systems
-
Respiratory: Reports No Symptoms
Cardiac: Reports No Symptoms
Abdomen/GI: Reports No Symptoms
Physical Exam
-
General: Obese
HEENT: Negative Oxygen
Cardiac: Regular Rhythm and S1/S2; Negative Murmur
GI: Soft; Negative Tender
Neuro: Awake, Alert and No Motor Deficits
[2024-07-05] MEDS: LASIX 20 MG PO (09:09)
[2024-07-05] MEDS: KLOR-CON 20 MEQ PO (09:09)
[2024-07-05 11:35] LABS: Glucose - Point of Care 147 mg/dl (70-99)
--- NOTE | 2024-07-05 14:08 | PTCARENOTE ---
Rec'd pt at 0700, pt IMU LOC. Pt AAOx3, follows commands, [place] with gen weakness. Monitor SR. Lungs dim, pox 100% RA. Abd large/round/ascites. Voiding yellow urine via urinal. Pt talking about going home on hospice tomorrow, emotional support given.
Worked with physical therapy this afternoon, pt sat on side of bed with difficulty and unable to stand. Family at bedside.
[2024-07-05 16:54] LABS: Glucose - Point of Care 153 mg/dl (70-99)
[2024-07-05] MEDS: NOVOLOG FLEXPEN-MODERATE RESISTANCE 1 UNITS SC (17:21)
--- NOTE | 2024-07-05 20:00 | PTCARENOTE ---
Rec'd pt resting in bed, denies pain, cooperative, SR, bp stable, weak distal pulses, + edema, skin awrm/dry, RA, lungs w/ decr bases in bases, crackles R base, sat 96, hypo bowel sounds, no bm, abd w/ ascites, denies pain,no n/v, voiding taras
urine in urinal w/o difficulty
[2024-07-05 21:45] LABS: Glucose - Point of Care 170 mg/dl (70-99)
[2024-07-06] VITALS (8 sets, daily range): BP systolic 88–106; BP diastolic 63–79; BMI 32.4
--- NOTE | 2024-07-06 | PTCARENOTE ---
sys reviewed, changes noted, CHG bath done, linens changed
[2024-07-06 03:18] LABS: Hematocrit 24.7 % (39.0-52.0); Hemoglobin 8.3 g/dL (13.0-18.0); Mean Corp Hgb Conc. 33.6 g/dL (33.0-37.0); Mean Corpuscular Hgb 33.1 pg (27.0-31.0); Mean Corpuscular Volume 98.4 fL (80.0-94.0); Mean Platelet Volume 12.1 fL (7.4-10.4); Platelet Count 16 10^3/uL (130-400); Red Blood Cell Count 2.51 10^6/uL (4.70-6.10); Red Cell Dist. Width 19.8 % (11.5-14.5); White Blood Cell Count 0.9 10^3/uL (4.8-10.8)
[2024-07-06 03:21] LABS: INR 1.47; PT 18.1 Sec (11.4-14.6)
[2024-07-06 03:22] LABS: APTT 46.3 Sec (23.4-35.0)
[2024-07-06 03:27] LABS: Blood Urea Nitrogen 51 mg/dl (9-20); Carbon Dioxide 27 mmol/L (22-30); Chloride 112 mmol/L (98-107); Estimated Creatinine Clearance 70 ml/min; Glucose 103 mg/dl (70-99); Potassium 3.6 mmol/L (3.5-5.1); Sodium 145 mmol/L (135-145); eGFR > 60.00
[2024-07-06 03:32] LABS: Fibrinogen 82 MG/DL (199-459)
--- NOTE | 2024-07-06 04:22 | PTCARENOTE ---
sys reviewed, changes noted
[2024-07-06] MEDS: ZOSYN 50 IV (05:35)
[2024-07-06 05:41] LABS: Glucose - Point of Care 87 mg/dl (70-99)
[2024-07-06 07:18] LABS: Glucose - Point of Care 86 mg/dl (70-99)
[2024-07-06] MEDS: NOVOLOG FLEXPEN 2 UNITS SC (07:39)
[2024-07-06] MEDS: PROTONIX IV 40 MG IV (07:46)
[2024-07-06] MEDS: NSS (PRESERVATIVE FREE) 10 ML IV (07:46)
--- NOTE | 2024-07-06 08:56 | HOSPNOTE ---
Equipment was ordered and will be delivered this morning. Once patient is home we will sign onto hospice services. OOH DNR needed on chart. Transport is needed. CM and Attending aware. No Pleurex will be placed today per Attending.
[2024-07-06] MEDS: LANTUS 0.08 UNITS SC (09:02)
[2024-07-06 09:13] LABS: Glucose - Point of Care 117 mg/dl (70-99)
--- NOTE | 2024-07-06 11:14 | CM ---
Reviewed the chart notes. CM received message to call spouse. CM spoke with the patient's spouse via telephone. Questions answered and she was informed of transportation time (1230). Equipment to be delivered between 1030 and 1100. CM continues
to be available to patient/family and is monitoring medical plan for needs at discharge.
Plan: Discharge to home with Hospice.
Medical necessity and transport forms tubed to ICU.
--- NOTE | 2024-07-06 12:55 | PTCARENOTE ---
Transport company at bedside to transport patient home on hospice. Belongings, including phone and drag down sent with patient. Prescriptions included in discharge paperwork. SQ port and PICC removed by VAT prior to discharge. goods layer at bedside;
planning on meeting patient at home.
--- NOTE | 2024-07-06 13:58 | VATNOTE ---
R PICC D/C'd per protocol, TCL retrieved was 41 cm. Pressure dressing applied.
--- NOTE | 2024-07-06 16:42 | W.PN.HOSP.TC ---
Addendum entered and electronically signed by Ifeanyi Chinchilla MD 07/08/24 15:19:
Added in response to CDI query:
Right peroneal vein thrombus is presumed to be acute in nature
Original Note:
Today's Communication/Plan
-
d/c home
Assessment / Plan
Assessment / Plan
Impression:
This is a 69-year-old with metastatic pancreatic cancer and extensive liver mets complicated by ascites, anasarca here with shock physiology suspect hemorrhagic with or without septic shock.
Sepsis with severe septic shock.
Hypotension not responding to IV fluids and requiring multiple pressors.
Metabolic acidosis.
Acute kidney injury.
DIC
GI bleed
Acute blood loss anemia
Hypernatremia
Hypoalbuminemia
Metastatic to the liver pancreatic carcinoma treated with multiple rounds of chemotherapy
Ansaraca
Other conditions:
Type 2 diabetes
Hypertension
Plan:
Critically ill admitted to intensive care unit.
Severe sepsis with septic shock requiring vasopressors. resolved shock at this point.
Hypothermia, hypotension, leukocytosis at presentation
with metastatic pancreatic cancer likely source is intra-abdominal
Blood cultures NTD. ascitic fluid culture negative,
CT chest showing bilateral compression atelectasis
Maintain on Zosyn, discontinued vancomycin
Got stress dose of hydrocortisone. now off of it.
Acute kidney injury suspect prerenal stimuli with severe hypotension and anemia - resolved
Creatinine 1.7, BUN 76 on presentation
Magana cath to be replaced for hospice care.
Alcohol needed IV fluids.
continue monitoring renal function for recovery.
DIC - Improved
Coagulopathy
Multifactorial anemia likely from hemolysis/blood loss
Thrombocytopenia
Patient may have DIC from metastatic malignancy/sepsis
Low fibrinogen (<60), thrombocytopenia/elevated INR
Blood in stool has stopped
continue monitoring for now with transfusion was provided prn till hospice decision made.
got total 4 u prbc, 7 u plt, 2 u FFP so far this admit.
Type 2 diabetes.
A1c of 6.5
Basal bolus protocol. possibly can be stopped if patient preferes to avoid un-necessary sticks.
Hold metformin
Essential hypertension.
Hold lisinopril
Metastatic pancreatic carcinoma
Progressive through multiple rounds of chemotherapy.
Known hepatic mets.
Updated imaging including ultrasound/CT scan of the abdomen pending
Oncology/hematology following and help appreciated
Plan is to continue goals of care discussion.
Anasarca
Ascites
Providing 20 mg Lasix dose as renal function improved, blood pressure remains soft limiting higher dosing
Discussed with interventional radiology and patient considered to be high risk for procedure. As patient not in significant discomfort we will not proceed with paracentesis
DNR/DNI
DVT prophylaxis mechanical
07/03 patient family agreed for patient to be DNR/DNI after discussion with the android architect on 07/02. Oncology discussed with patient poor prognosis and no treatment options are left. Patient and family understands this and have agreed for patient
to be taken home on home hospice on Saturday. Patient have certain family numbers visiting from other part of country and flying in to see the patient
07/05 discussed care plan with patient. Patient is hopeful to go home on home hospice. Overall decreased mobility and may require significant assistance, if family able to take shelter hospice remains appropriate choice. Patient is waiting for
family to visit today and will try working with physical therapy
More than 30 minutes spent in discharge including
Final examination of the patient
Summarizing hospital stay
Instructions for continuing care to all relevant caregivers
Preparation of discharge records, prescriptions, and referral forms
Total time spent (in minutes): 38 mins
Anticipated Discharge: Today
Subjective/Interval History
-
Date of Service: July 06, 2024
No new complaints
Objective Data
-
Vital Signs:
Vital Signs
Temp Pulse Resp BP Pulse Ox
97.4 F 77 17 106/79 100
07/06/24 11:25 07/06/24 12:00 07/06/24 12:00 07/06/24 12:00 07/06/24 10:53
I&O
07/05/24 07/06/24 07/07/24
06:59 06:59 06:59
Intake Total 3765 / 3765 1240 / 1240 240 / 240
Output Total 1750 / 1750 1150 / 1150 300 / 300
Balance 2014 90 / 90 -60 / -60
Review of Systems
-
Respiratory: Reports No Symptoms
Cardiac: Reports No Symptoms
Abdomen/GI: Reports No Symptoms
Physical Exam
-
General: Obese
HEENT: Negative Oxygen
Cardiac: Regular Rhythm and S1/S2; Negative Murmur
GI: Soft; Negative Tender
Neuro: Awake, Alert and No Motor Deficits
--- NOTE | 2024-07-06 17:54 | W.DCSUMMARY ---
Discharge Summary
Discharge Data
Date of Admission: 07/01/24
Date of Discharge: 07/06/24
-
Pending Results: No
Hospital Course
Discharging Physician : Dr Ifeanyi Chinchilla
Disposition : Home hospice
Primary care physician : Dr Genaro Montes De Oca
Principal Discharge diagnosis :
Sepsis with severe septic shock.
Metabolic acidosis.
Acute kidney injury.
Disseminated intravascular coagulation
Gastrointestinal bleed
Acute blood loss anemia
Hypernatremia
Hypoalbuminemia
Anasarca
Peroneal vein thrombus
Chronic Discharge diagnosis :
Pancreatic cancer Metastatic to the liver pancreatic carcinoma treated with multiple rounds of chemotherapy
Hospital Course :
Patient is a 69-year-old male with admission past medical history came to ER for having increased abdominal distention and lower extremity swelling/anasarca. Patient was found to be extremely weak and hypotensive as well at home.
Clinical evaluation in ER showing patient having severe sepsis with elevated lab markers. Patient was hypotensive and was resuscitated with IV fluid appropriately. Despite IV fluid resuscitation patient blood pressure remained low and required to
be started on vasopressors. Patient admitted to ICU for further monitoring. Septic workup was sent and no clear source was found although in light of patient extensive abdominal metastatic cancer history it was felt to be intra-abdominal in
nature. Patient was started on broad-spectrum antibiotic. Patient required stress dose of steroid. Patient had improvement in sepsis slowly and was able to be weaned off of vasopressors. Patient was taken off of antibiotics at discharge.
Associated with this patient had significant coagulopathy and DIC like picture. Hematology was involved in care and patient required transfusion of PRBC/platelets/FFP. Patient was having continuous blood in stool which stopped after improvement in
coagulopathy. Although despite improvement on lab no complete resolution of lab abnormalities. Oncology discussed poor prognosis with patient family and unavailability of any options remaining for treatment of malignancy. In light of all this
information patient decided to transition to hospice care. Patient was discharged home with home hospice care after appropriate arrangement made.
Of note patient had undergone paracentesis of 7 L of acetic fluid, no signs of SBP. Repeat paracentesis versus peritoneal drainage catheter was considered although patient was deemed a poor candidate with persistent severe thrombocytopenia/low
fibrinogen level. As patient was not in significant discomfort from ascites this was deferred at time of discharge.
Important imaging findings :
None
Procedure findings :
None
Discharge Plan
-
Patient Disposition: Home with Hospice
Discharge Diagnosis/Procedures: metastatic pancreatic cancer, coagulopathy, anasarca, septic shock
Condition: Fair
Diet: 2 Gram Sodium and Diabetic, Carb Controlled
Activity: As tolerated
Driving Restrictions: No driving
Referrals:
UNKNOWN - PT DOES,NOT KNOW [Family Provider] -
Prescriptions:
New
polyethylene glycol 3350 17 gram Powder In Packet
17 g PO DAILY Qty: 30 0RF
oxycodone 5 mg tablet
5 mg PO Q8H PRN (Reason: mod sev pain) Qty: 14 0RF
ondansetron 4 mg tablet,disintegrating
4 mg PO Q8H PRN (Reason: nausea and vomiting) Qty: 20 0RF
Continued
metformin 1,000 mg Tablet
1,000 mg PO BID
furosemide [Lasix] 20 mg Tablet
20 mg PO BID
Discontinued
atorvastatin 40 mg Tablet
40 mg PO DAILY
lisinopril 40 mg Tablet
40 mg PO DAILY
prochlorperazine maleate 10 mg Tablet
10 mg PO Q6HPRN PRN (Reason: nausea)
fluorouracil 500 mg/10 mL Solution
4,940 mg IV . DIRECTED
irinotecan liposomal 4.3 mg/mL Dispersion
144 mg IV . DIRECTED
Discharge Orders:
Discharge Patient (As Directed); Ordered 07/06/24
Ordered By: Ifeanyi Chinchilla
Discharge Date and Time
Discharge Date/Time: 07/06/24 13:00
Print Language: TAMAZIGHT
== END 2024-07-06 13:00 | disposition hospice, home (50) | DRG 871 ==
LOC: ICU 07:55
PROVIDERS: Internal Medicine; Internal Medicine Critical Care Medicine; Nurse Practitioner Acute Care; Nurse Practitioner Family; Nurse Practitioner Gerontology; Nurse Practitioner Primary Care; Radiology Diagnostic Radiology; ADMITTING PHYSICIAN Internal Medicine; ATTENDING PHYSICIAN Hospitalist; CONSULT PHYSICIAN Internal Medicine Hematology & Oncology; EMERGENCY PHYSICIAN Student in an Organized Health Care Education/Training Program; OTHER PHYSICIAN Internal Medicine Gastroenterology; OTHER PHYSICIAN Nurse Practitioner Gerontology; OTHER PHYSICIAN Psychiatry & Neurology Psychiatry
PROC: 30243K1 Transfusion of Nonautologous Frozen Plasma into Central Vein, Percutaneous Approach (ICD-10-PCS; 2024-07-01)
PROC: 0W9G3ZZ Drainage of Peritoneal Cavity, Percutaneous Approach (ICD-10-PCS; 2024-07-01)
PROC: 30233R1 Transfusion of Nonautologous Platelets into Peripheral Vein, Percutaneous Approach (ICD-10-PCS; 2024-07-01)
PROC: B5181ZA Fluoroscopy of Superior Vena Cava using Low Osmolar Contrast, Guidance (ICD-10-PCS; 2024-07-01)
PROC: 02HV33Z Insertion of Infusion Device into Superior Vena Cava, Percutaneous Approach (ICD-10-PCS; 2024-07-01)
PROC: 30233N1 Transfusion of Nonautologous Red Blood Cells into Peripheral Vein, Percutaneous Approach (ICD-10-PCS; 2024-07-02)
DX: A41.9 Sepsis, unspecified organism (principal); I81 Portal vein thrombosis; R65.21 Severe sepsis with septic shock; C25.9 Malignant neoplasm of pancreas, unspecified; C78.7 Secondary malignant neoplasm of liver and intrahepatic bile duct; R18.8 Other ascites; E87.20 Acidosis, unspecified; N17.9 Acute kidney failure, unspecified; K92.2 Gastrointestinal hemorrhage, unspecified; D62 Acute posthemorrhagic anemia; E87.0 Hyperosmolality and hypernatremia; D68.9 Coagulation defect, unspecified; D61.818 Other pancytopenia; K76.6 Portal hypertension; I82.451 Acute embolism and thrombosis of right peroneal vein; E87.70 Fluid overload, unspecified; E88.09 Other disorders of plasma-protein metabolism, not elsewhere classified; I10 Essential (primary) hypertension; Z79.84 Long term (current) use of oral hypoglycemic drugs; K59.00 Constipation, unspecified; G47.33 Obstructive sleep apnea (adult) (pediatric); E78.00 Pure hypercholesterolemia, unspecified; E66.01 Morbid (severe) obesity due to excess calories; Z68.32 Body mass index [BMI] 32.0-32.9, adult; Z86.0100 Personal history of colon polyps, unspecified; R54 Age-related physical debility; R62.7 Adult failure to thrive; W07.XXXA Fall from chair, initial encounter; Z79.899 Other long term (current) drug therapy; Z82.5 Family history of asthma and other chronic lower respiratory diseases; Z87.891 Personal history of nicotine dependence
CPT/HCPCS: 88305; 36430; 49083; 71045; 71250; 74176; 76604; 76700; 80048; 80053; 80202; 81003; 81015; 82042; 82150; 82607; 82746; 82805; 82962; 83036; 83615; 83690; 83735; 84100; 84157; 84439; 84443; 85025; 85027; 85045; 85384; 85610; 85730; 86850; 86900; 86901; 86920; 87015; 87040; 87070; 87086; 87205; 87641; 88112; 89051; 93005; 93306; 93970; 93975; 96361; 96365; 96366; 96367; 96375; 97163; 99291; P9016; P9047; P9059; P9073